=== PATIENT | male | born 1950 | race African-American/Black ===

== ENCOUNTER 2018-05-31 07:04 | Inpatient (IN) ==
[~2018-05-31 07:04] MED LIST: ceFAZolin 1,000 MG in SYRINGE 1 EACH IV ONE
[2018-05-31] MEDS ORDERED: ceFAZolin 1,000 MG VIAL ONE (07:28)
[2018-05-31 07:50] LABS: Basophils % 0.3 % (0.0-0.8); Eosinophils # 0.4 10*3/uL (0.0-0.87); Eosinophils % 3.4 % (0.00-10.9); Hematocrit 40.1 VOL% (42.0-52.0); Hemoglobin 13.1 GM/DL (14.0-18.0); Immature Granulocytes % 0.3 %; Immature Granulocytes Absolute 0.03 #; Lymphocytes # 1.7 10*3/uL (1.4-4.0); Lymphocytes % 16.5 % (21.2-54.2); Mean Corpuscular HGB Conc 32.7 GM/DL (32-36); Mean Corpuscular Hemoglobin 29 PG (27-34); Mean Corpuscular Volume 89.3 FL (87-102); Monocytes # 0.6 10*3/uL (0.11-0.8); Monocytes % 5.7 % (1.7-12.7); Neutrophils # 7.5 10*3/uL (1.4-7.4); Neutrophils % 73.8 % (38.7-73.9); Platelet Count 189 T/CUMM (130-400); Red Blood Count 4.49 MC/CUMM (3.8-5.5); Red Cell Distribution Width 14.1 % (9.3-17.3); White Blood Count 10.2 T/CUMM (4-12)
[2018-05-31] MEDS ORDERED: ALBUTEROL/IPRATROPIUM 3 ML NEB RESP TX ONE (08:06)
[2018-05-31] MEDS ORDERED: FAMOTIDINE 20 MG/2 ML VIAL IV ONE ×2 (08:06→08:17)
[2018-05-31 08:17] LABS: Albumin 2.5 G/DL (3.4-5.0); Bilirubin,Total 0.6 MG/DL (0.2-1.0); Calcium 9.3 MG/DL (8.5-10.1); Osmolality,Calculated 277.7 MOS/KG (273-304); Potassium 4.6 MMOL/L (3.5-5.1); Total Protein 8.1 G/DL (6.4-8.3)
[2018-05-31] MEDS ORDERED: LACTATED RINGERS 1,000 ML IV SCH (08:30)
[2018-05-31] MEDS ORDERED: VANCOMYCIN 500 MG VIAL ONE (09:34)
[2018-05-31] MEDS ORDERED: ONDANSETRON 4 MG/2 ML VIAL IV PRN (11:13)
[2018-05-31] MEDS ORDERED: HYDROmorphone 2 MG/1 ML VIAL IV PRN (11:13)
[2018-05-31] MEDS ORDERED: ALBUTEROL/IPRATROPIUM 3 ML NEB RESP TX PRN (11:13)
[2018-05-31] MEDS ORDERED: PROMETHAZINE 25 MG/1 ML VIAL IM PRN (11:13)
[2018-05-31] MEDS ORDERED: MAGNESIUM HYDROXIDE SUSP 30 ML UDCUP PER TUBE PRN (11:18)
[2018-05-31] MEDS ORDERED: PROPOFOL 200 MG/20 ML VIAL IV ONE (11:27)
[2018-05-31] MEDS ORDERED: fentaNYL 100 MCG/2 ML VIAL ONE (11:28)
[2018-05-31] MEDS ORDERED: SEVOFLURANE 1 UNIT/15 MINUTE INH ONE (11:28)
[2018-05-31] MEDS ORDERED: KETAMINE 500 MG/10 ML VIAL ONE (11:29)
[2018-05-31] MEDS ORDERED: PHENYLEPHRINE 1 MG/10 ML SYRINGE IV ONE (11:29)
[2018-05-31] MEDS ORDERED: INFLUENZA VIRUS VACCINE 0.5 ML SYRINGE IM ONE (14:45)
[2018-05-31] MEDS ORDERED: METOPROLOL TARTRATE 100 MG TABLET PER TUBE SCH (16:00)
[2018-05-31] MEDS ORDERED: DIPYRIDAMOLE 50 MG TABLET PER TUBE SCH (16:00)
[2018-05-31] MEDS ORDERED: BUDESONIDE/FORMOTEROL 80-4.5 INHALER 6.9 GM INH SCH (16:00)
[2018-05-31] MEDS ORDERED: DEXTROSE 50% 25 GM/50 ML VIAL IV PRN (16:07)
[2018-05-31] MEDS ORDERED: GLUCAGON 1 MG VIAL IM PRN (16:07)
[2018-05-31] MEDS: LACTATED RINGERS 1,000 ML IV SCH ×2 (19:00→20:35)
[2018-05-31] MEDS: ALBUTEROL/IPRATROPIUM 3 ML NEB RESP TX SCH (19:17)
[2018-05-31] MEDS: INSULIN LISPRO 100 UNIT/ML SUBCUT SCH ×2 (20:34→22:17)
[2018-05-31] MEDS: cloNIDine 0.1 MG TABLET PER TUBE SCH (22:10)
[2018-05-31] MEDS: MELATONIN 3 MG TABLET PER TUBE SCH (22:10)
[2018-05-31] MEDS: SERTRALINE 100 MG TABLET PEG SCH (22:10)
[2018-05-31] MEDS: NAPROXEN 250 MG TABLET PO SCH (22:11)
[2018-05-31] MEDS: DIPYRIDAMOLE 50 MG TABLET PER TUBE SCH (22:17)
[2018-05-31] MEDS: METOPROLOL TARTRATE 100 MG TABLET PER TUBE SCH (22:17)
[2018-05-31] MEDS: HYDROmorphone 2 MG/1 ML VIAL IV PRN (22:18)
[2018-05-31] MEDS: BUDESONIDE/FORMOTEROL 80-4.5 INHALER 6.9 GM INH SCH (22:28)
[2018-06-01] MEDS: ALBUTEROL/IPRATROPIUM 3 ML NEB RESP TX SCH ×4 (00:13→19:09)
[2018-06-01] MEDS: LACTATED RINGERS 1,000 ML IV SCH ×3 (05:15→17:58)
[2018-06-01 05:19] LABS: Basophils % 0.3 % (0.0-0.8); Eosinophils # 0.1 10*3/uL (0.0-0.87); Hematocrit 31.8 VOL% (42.0-52.0); Hemoglobin 10.2 GM/DL (14.0-18.0); Immature Granulocytes % 0.3 %; Immature Granulocytes Absolute 0.03 #; Lymphocytes # 1.4 10*3/uL (1.4-4.0); Mean Corpuscular HGB Conc 32.1 GM/DL (32-36); Mean Corpuscular Hemoglobin 29 PG (27-34); Mean Corpuscular Volume 89.1 FL (87-102); Mean Platelet Volume 11.2 FL (9.6-12.0); Monocytes # 0.6 10*3/uL (0.11-0.8); Monocytes % 6.7 % (1.7-12.7); Neutrophils # 7.3 10*3/uL (1.4-7.4); Neutrophils % 76.7 % (38.7-73.9); Platelet Count 175 T/CUMM (130-400); Red Blood Count 3.57 MC/CUMM (3.8-5.5); Red Cell Distribution Width 13.8 % (9.3-17.3); White Blood Count 9.5 T/CUMM (4-12)
[2018-06-01 05:33] LABS: Calcium 8.5 MG/DL (8.5-10.1); Osmolality,Calculated 284.4 MOS/KG (273-304); Potassium 3.9 MMOL/L (3.5-5.1)
[2018-06-01 05:35] LABS: Albumin 2.2 G/DL (3.4-5.0); Bilirubin,Total 0.7 MG/DL (0.2-1.0); Calcium 8.7 MG/DL (8.5-10.1); Osmolality,Calculated 285.3 MOS/KG (273-304); Potassium 3.9 MMOL/L (3.5-5.1); Prealbumin 12.1 MG/DL (20-40); Risk Ratio 2.97; Total Protein 6.8 G/DL (6.4-8.3); VLDL CHOLESTEROL 14.4 MG/DL
[2018-06-01] MEDS: FONDAPARINUX 2.5 MG/0.5 ML SYRINGE SUBCUT SCH (06:25)
[2018-06-01] MEDS: NAPROXEN 250 MG TABLET PO SCH ×3 (06:26→21:41)
[2018-06-01] MEDS: INSULIN LISPRO 100 UNIT/ML SUBCUT SCH ×4 (09:35→20:05)
[2018-06-01] MEDS: ASPIRIN 325 MG TABLET PER TUBE SCH (11:06)
[2018-06-01] MEDS: LOSARTAN 25 MG TABLET PEG SCH (11:06)
[2018-06-01] MEDS: METOPROLOL TARTRATE 100 MG TABLET PER TUBE SCH ×2 (11:06→15:27)
[2018-06-01] MEDS: amLODIPine 10 MG TABLET PER TUBE SCH (11:06)
[2018-06-01] MEDS: DIPYRIDAMOLE 50 MG TABLET PER TUBE SCH ×2 (11:06→15:28)
[2018-06-01] MEDS: LORATADINE 10 MG TABLET PER TUBE SCH (11:07)
[2018-06-01] MEDS: ALLOPURINOL 100 MG TABLET PER TUBE SCH (11:07)
[2018-06-01] MEDS: POTASSIUM CHLORIDE 20 MEQ/15 ML UDCUP PER TUBE SCH (11:07)
[2018-06-01] MEDS: MULTIVITAMIN LIQUID (CENTRUM) 60 ML BOTTLE PER TUBE SCH (11:07)
[2018-06-01] MEDS: BUDESONIDE/FORMOTEROL 80-4.5 INHALER 6.9 GM INH SCH ×2 (11:08→15:40)
[2018-06-01] MEDS: POLYETHYLENE GLYCOL POWDER 17 GM PACK PER TUBE SCH (11:08)
[2018-06-01] MEDS: HYDROmorphone 2 MG/1 ML VIAL IV PRN (11:39)
[2018-06-01] MEDS ORDERED: LEVOFLOXACIN INJ 500 MG in PREMIX 1 EACH IV SCH (16:30)
[2018-06-01] MEDS: LEVOFLOXACIN INJ 750 MG in PREMIX 1 EACH IV SCH (17:55)
[2018-06-01] MEDS: PIPERACILLIN/TAZOBACTAM 3,375 MG in SODIUM CHLORIDE 0.9% 100 ML IV SCH (21:39)
[2018-06-01] MEDS: cloNIDine 0.1 MG TABLET PER TUBE SCH (21:40)
[2018-06-01] MEDS: SERTRALINE 100 MG TABLET PEG SCH (21:40)
[2018-06-01] MEDS: MELATONIN 3 MG TABLET PER TUBE SCH (21:41)
[2018-06-02] MEDS: ALBUTEROL/IPRATROPIUM 3 ML NEB RESP TX SCH ×4 (00:29→19:16)
[2018-06-02] MEDS: LACTATED RINGERS 1,000 ML IV SCH (00:46)
[2018-06-02 05:40] LABS: Basophils % 0.2 % (0.0-0.8); Eosinophils # 0.2 10*3/uL (0.0-0.87); Eosinophils % 2.6 % (0.00-10.9); Hemoglobin 9.9 GM/DL (14.0-18.0); Immature Granulocytes % 0.3 %; Immature Granulocytes Absolute 0.03 #; Lymphocytes % 11.1 % (21.2-54.2); Mean Corpuscular HGB Conc 31.9 GM/DL (32-36); Mean Corpuscular Hemoglobin 28 PG (27-34); Mean Corpuscular Volume 88.6 FL (87-102); Monocytes # 0.8 10*3/uL (0.11-0.8); Monocytes % 8.2 % (1.7-12.7); Neutrophils # 7.1 10*3/uL (1.4-7.4); Neutrophils % 77.6 % (38.7-73.9); Platelet Count 170 T/CUMM (130-400); White Blood Count 9.2 T/CUMM (4-12)
[2018-06-02 05:59] LABS: Calcium 8.4 MG/DL (8.5-10.1); Osmolality,Calculated 283.3 MOS/KG (273-304); Potassium 3.8 MMOL/L (3.5-5.1)
[2018-06-02] MEDS: PIPERACILLIN/TAZOBACTAM 3,375 MG in SODIUM CHLORIDE 0.9% 100 ML IV SCH ×3 (06:10→21:04)
[2018-06-02] MEDS: NAPROXEN 250 MG TABLET PO SCH ×3 (06:13→21:03)
[2018-06-02] MEDS: FONDAPARINUX 2.5 MG/0.5 ML SYRINGE SUBCUT SCH (06:14)
[2018-06-02] MEDS: INSULIN LISPRO 100 UNIT/ML SUBCUT SCH ×4 (07:30→22:03)
[2018-06-02] MEDS: ASPIRIN 325 MG TABLET PER TUBE SCH (09:41)
[2018-06-02] MEDS: DIPYRIDAMOLE 50 MG TABLET PER TUBE SCH ×2 (09:41→15:36)
[2018-06-02] MEDS: METOPROLOL TARTRATE 100 MG TABLET PER TUBE SCH ×2 (09:41→15:36)
[2018-06-02] MEDS: LOSARTAN 25 MG TABLET PEG SCH (09:41)
[2018-06-02] MEDS: amLODIPine 10 MG TABLET PER TUBE SCH (09:41)
[2018-06-02] MEDS: LORATADINE 10 MG TABLET PER TUBE SCH (09:41)
[2018-06-02] MEDS: ALLOPURINOL 100 MG TABLET PER TUBE SCH (09:41)
[2018-06-02] MEDS: MULTIVITAMIN LIQUID (CENTRUM) 60 ML BOTTLE PER TUBE SCH (09:42)
[2018-06-02] MEDS: BUDESONIDE/FORMOTEROL 80-4.5 INHALER 6.9 GM INH SCH ×2 (09:42→15:45)
[2018-06-02] MEDS: POLYETHYLENE GLYCOL POWDER 17 GM PACK PER TUBE SCH (09:55)
[2018-06-02] MEDS: LEVOFLOXACIN INJ 750 MG in PREMIX 1 EACH IV SCH (17:07)
[2018-06-02] MEDS: SERTRALINE 100 MG TABLET PEG SCH (21:03)
[2018-06-02] MEDS: cloNIDine 0.1 MG TABLET PER TUBE SCH (21:03)
[2018-06-02] MEDS: MELATONIN 3 MG TABLET PER TUBE SCH (22:03)
[2018-06-03] MEDS: ALBUTEROL/IPRATROPIUM 3 ML NEB RESP TX SCH ×4 (00:15→19:26)
[2018-06-03] MEDS: PIPERACILLIN/TAZOBACTAM 3,375 MG in SODIUM CHLORIDE 0.9% 100 ML IV SCH ×2 (06:05→14:15)
[2018-06-03] MEDS: FONDAPARINUX 2.5 MG/0.5 ML SYRINGE SUBCUT SCH (06:05)
[2018-06-03] MEDS: NAPROXEN 250 MG TABLET PO SCH ×3 (06:05→21:03)
[2018-06-03] MEDS: LOSARTAN 25 MG TABLET PEG SCH (08:03)
[2018-06-03] MEDS: LORATADINE 10 MG TABLET PER TUBE SCH (08:03)
[2018-06-03] MEDS: amLODIPine 10 MG TABLET PER TUBE SCH (08:03)
[2018-06-03] MEDS: METOPROLOL TARTRATE 100 MG TABLET PER TUBE SCH ×2 (08:03→15:09)
[2018-06-03] MEDS: ASPIRIN 325 MG TABLET PER TUBE SCH (08:03)
[2018-06-03] MEDS: ALLOPURINOL 100 MG TABLET PER TUBE SCH (08:03)
[2018-06-03] MEDS: DIPYRIDAMOLE 50 MG TABLET PER TUBE SCH ×2 (08:03→15:09)
[2018-06-03] MEDS: POTASSIUM CHLORIDE 20 MEQ/15 ML UDCUP PER TUBE SCH (08:03)
[2018-06-03] MEDS: INSULIN LISPRO 100 UNIT/ML SUBCUT SCH ×4 (08:04→20:00)
[2018-06-03] MEDS: BUDESONIDE/FORMOTEROL 80-4.5 INHALER 6.9 GM INH SCH ×2 (08:06→15:09)
[2018-06-03] MEDS: MULTIVITAMIN LIQUID (CENTRUM) 60 ML BOTTLE PER TUBE SCH (08:09)
[2018-06-03] MEDS: POLYETHYLENE GLYCOL POWDER 17 GM PACK PER TUBE SCH (09:19)
[2018-06-03] MEDS: LACTOBACILLUS ACIDOPHILUS/BULGARICUS CAPLET PO SCH (10:04)
[2018-06-03] MEDS: metroNIDAZOLE INJ 500 MG in PREMIX 1 EACH IV SCH ×2 (14:34→21:35)
[2018-06-03] MEDS: CHOLESTYRAMINE 4 GM PACK PO SCH (17:10)
[2018-06-03] MEDS: VANCOMYCIN 50 MG/ML 60 ML/BOTTLE PO SCH (17:10)
[2018-06-03] MEDS: SERTRALINE 100 MG TABLET PEG SCH (21:03)
[2018-06-03] MEDS: MELATONIN 3 MG TABLET PER TUBE SCH (21:04)
[2018-06-03] MEDS: cloNIDine 0.1 MG TABLET PER TUBE SCH (21:04)
[2018-06-04] MEDS: VANCOMYCIN 50 MG/ML 60 ML/BOTTLE PO SCH ×4 (00:11→18:27)
[2018-06-04] MEDS: ALBUTEROL/IPRATROPIUM 3 ML NEB RESP TX SCH ×4 (01:09→18:30)
[2018-06-04 04:31] LABS: Basophils # 0.1 10*3/uL (0.0-0.2); Basophils % 0.7 % (0.0-0.8); Eosinophils # 0.5 10*3/uL (0.0-0.87); Eosinophils % 7.5 % (0.00-10.9); Hematocrit 30.5 VOL% (42.0-52.0); Hemoglobin 9.9 GM/DL (14.0-18.0); Immature Granulocytes % 0.3 %; Immature Granulocytes Absolute 0.02 #; Lymphocytes # 1.5 10*3/uL (1.4-4.0); Lymphocytes % 21.6 % (21.2-54.2); Mean Corpuscular HGB Conc 32.5 GM/DL (32-36); Mean Corpuscular Hemoglobin 29 PG (27-34); Mean Corpuscular Volume 89.7 FL (87-102); Monocytes # 0.5 10*3/uL (0.11-0.8); Monocytes % 7.6 % (1.7-12.7); Neutrophils # 4.3 10*3/uL (1.4-7.4); Neutrophils % 62.3 % (38.7-73.9); Platelet Count 169 T/CUMM (130-400); White Blood Count 6.9 T/CUMM (4-12)
[2018-06-04 04:47] LABS: Calcium 8.6 MG/DL (8.5-10.1); Osmolality,Calculated 283.3 MOS/KG (273-304); Potassium 3.8 MMOL/L (3.5-5.1)
[2018-06-04] MEDS: FONDAPARINUX 2.5 MG/0.5 ML SYRINGE SUBCUT SCH (05:49)
[2018-06-04] MEDS: NAPROXEN 250 MG TABLET PO SCH (05:49)
[2018-06-04] MEDS: metroNIDAZOLE INJ 500 MG in PREMIX 1 EACH IV SCH ×3 (05:50→23:30)
[2018-06-04] MEDS: INSULIN LISPRO 100 UNIT/ML SUBCUT SCH ×4 (08:52→20:32)
[2018-06-04] MEDS ORDERED: FUROSEMIDE 40 MG/4 ML VIAL IV ONE (09:55)
[2018-06-04] MEDS: LACTOBACILLUS ACIDOPHILUS/BULGARICUS CAPLET PO SCH (09:56)
[2018-06-04] MEDS: BUDESONIDE/FORMOTEROL 80-4.5 INHALER 6.9 GM INH SCH ×2 (09:56→16:16)
[2018-06-04] MEDS: ASPIRIN 325 MG TABLET PER TUBE SCH (09:56)
[2018-06-04] MEDS: METOPROLOL TARTRATE 100 MG TABLET PER TUBE SCH ×2 (09:56→16:16)
[2018-06-04] MEDS: LORATADINE 10 MG TABLET PER TUBE SCH (09:56)
[2018-06-04] MEDS: MULTIVITAMIN LIQUID (CENTRUM) 60 ML BOTTLE PER TUBE SCH (09:56)
[2018-06-04] MEDS: DIPYRIDAMOLE 50 MG TABLET PER TUBE SCH ×2 (09:56→16:16)
[2018-06-04] MEDS: ALLOPURINOL 100 MG TABLET PER TUBE SCH (09:57)
[2018-06-04] MEDS: LOSARTAN 25 MG TABLET PEG SCH (09:57)
[2018-06-04] MEDS: amLODIPine 10 MG TABLET PER TUBE SCH (09:57)
[2018-06-04] MEDS: CHOLESTYRAMINE 4 GM PACK PO SCH (09:57)
[2018-06-04] MEDS: HYDROmorphone 2 MG/1 ML VIAL IV PRN (11:01)
[2018-06-04] MEDS: SERTRALINE 100 MG TABLET PEG SCH (21:06)
[2018-06-04] MEDS: MELATONIN 3 MG TABLET PER TUBE SCH (21:06)
[2018-06-04] MEDS: cloNIDine 0.1 MG TABLET PER TUBE SCH (21:06)
[2018-06-05] MEDS: VANCOMYCIN 50 MG/ML 60 ML/BOTTLE PO SCH ×4 (01:10→17:47)
[2018-06-05 04:40] LABS: Basophils % 0.6 % (0.0-0.8); Eosinophils # 0.5 10*3/uL (0.0-0.87); Eosinophils % 9.6 % (0.00-10.9); Immature Granulocytes % 0.4 %; Immature Granulocytes Absolute 0.02 #; Lymphocytes # 1.2 10*3/uL (1.4-4.0); Mean Corpuscular HGB Conc 32.4 GM/DL (32-36); Mean Corpuscular Hemoglobin 28 PG (27-34); Mean Corpuscular Volume 87.9 FL (87-102); Mean Platelet Volume 10.7 FL (9.6-12.0); Monocytes # 0.3 10*3/uL (0.11-0.8); Monocytes % 6.4 % (1.7-12.7); Neutrophils # 3.2 10*3/uL (1.4-7.4); Platelet Count 187 T/CUMM (130-400); Red Blood Count 3.87 MC/CUMM (3.8-5.5); Red Cell Distribution Width 13.9 % (9.3-17.3); White Blood Count 5.3 T/CUMM (4-12)
[2018-06-05 05:16] LABS: Albumin 2.2 G/DL (3.4-5.0); Bilirubin,Total 0.5 MG/DL (0.2-1.0); Calcium 8.8 MG/DL (8.5-10.1); Osmolality,Calculated 282.4 MOS/KG (273-304); Potassium 3.5 MMOL/L (3.5-5.1); Total Protein 7.3 G/DL (6.4-8.3)
[2018-06-05] MEDS: FONDAPARINUX 2.5 MG/0.5 ML SYRINGE SUBCUT SCH (06:06)
[2018-06-05] MEDS: metroNIDAZOLE INJ 500 MG in PREMIX 1 EACH IV SCH ×3 (06:15→21:30)
[2018-06-05] MEDS: ALBUTEROL/IPRATROPIUM 3 ML NEB RESP TX SCH ×4 (07:32→20:05)
[2018-06-05] MEDS: INSULIN LISPRO 100 UNIT/ML SUBCUT SCH ×4 (07:40→21:28)
[2018-06-05] MEDS ORDERED: FUROSEMIDE 40 MG/4 ML VIAL IV ONE ×2 (08:00→16:19)
[2018-06-05] MEDS: DIPYRIDAMOLE 50 MG TABLET PER TUBE SCH ×2 (08:58→16:55)
[2018-06-05] MEDS: METOPROLOL TARTRATE 100 MG TABLET PER TUBE SCH ×2 (08:58→16:55)
[2018-06-05] MEDS: ASPIRIN 325 MG TABLET PER TUBE SCH (09:40)
[2018-06-05] MEDS: ALLOPURINOL 100 MG TABLET PER TUBE SCH (09:40)
[2018-06-05] MEDS: LOSARTAN 25 MG TABLET PEG SCH (09:40)
[2018-06-05] MEDS: amLODIPine 10 MG TABLET PER TUBE SCH (09:40)
[2018-06-05] MEDS: LACTOBACILLUS ACIDOPHILUS/BULGARICUS CAPLET PO SCH (09:41)
[2018-06-05] MEDS: LORATADINE 10 MG TABLET PER TUBE SCH (09:42)
[2018-06-05] MEDS: CHOLESTYRAMINE 4 GM PACK PO SCH (09:45)
[2018-06-05] MEDS: BUDESONIDE/FORMOTEROL 80-4.5 INHALER 6.9 GM INH SCH ×2 (09:45→16:57)
[2018-06-05] MEDS: MULTIVITAMIN LIQUID (CENTRUM) 60 ML BOTTLE PER TUBE SCH (09:46)
[2018-06-05] MEDS: VANCOMYCIN INJ 1,250 MG in SODIUM CHLORIDE 0.9% 250 ML IV SCH (12:12)
[2018-06-05] MEDS ORDERED: POTASSIUM CHLORIDE RIDER 10 MEQ in PREMIX 1 EACH IV PRN (16:20)
[2018-06-05] MEDS ORDERED: POTASSIUM CHLORIDE 20 MEQ TABLET PO PRN (16:20)
[2018-06-05] MEDS ORDERED: POTASSIUM CHLORIDE 20 MEQ/15 ML UDCUP PER TUBE PRN (16:20)
[2018-06-05] MEDS ORDERED: POTASSIUM CHLORIDE 20 MEQ/15 ML UDCUP PER TUBE ONE (18:00)
[2018-06-05] MEDS: cloNIDine 0.1 MG TABLET PER TUBE SCH (21:29)
[2018-06-05] MEDS: MELATONIN 3 MG TABLET PER TUBE SCH (21:29)
[2018-06-05] MEDS: SERTRALINE 100 MG TABLET PEG SCH (21:30)
[2018-06-06] MEDS: VANCOMYCIN 50 MG/ML 60 ML/BOTTLE PO SCH ×4 (00:23→17:02)
[2018-06-06] MEDS: VANCOMYCIN INJ 1,250 MG in SODIUM CHLORIDE 0.9% 250 ML IV SCH ×2 (00:23→11:20)
[2018-06-06] MEDS: ALBUTEROL/IPRATROPIUM 3 ML NEB RESP TX SCH ×4 (00:35→19:05)
[2018-06-06 03:56] LABS: Basophils % 0.7 % (0.0-0.8); Eosinophils # 0.5 10*3/uL (0.0-0.87); Eosinophils % 8.5 % (0.00-10.9); Hematocrit 35.2 VOL% (42.0-52.0); Hemoglobin 11.3 GM/DL (14.0-18.0); Immature Granulocytes % 0.3 %; Immature Granulocytes Absolute 0.02 #; Lymphocytes # 1.6 10*3/uL (1.4-4.0); Lymphocytes % 27.2 % (21.2-54.2); Mean Corpuscular HGB Conc 32.1 GM/DL (32-36); Mean Corpuscular Hemoglobin 28 PG (27-34); Mean Corpuscular Volume 88.2 FL (87-102); Mean Platelet Volume 10.6 FL (9.6-12.0); Monocytes # 0.4 10*3/uL (0.11-0.8); Monocytes % 7.1 % (1.7-12.7); Neutrophils # 3.4 10*3/uL (1.4-7.4); Neutrophils % 56.2 % (38.7-73.9); Platelet Count 205 T/CUMM (130-400); Red Blood Count 3.99 MC/CUMM (3.8-5.5); Red Cell Distribution Width 13.8 % (9.3-17.3)
[2018-06-06 04:15] LABS: Calcium 8.4 MG/DL (8.5-10.1); Osmolality,Calculated 286.3 MOS/KG (273-304); Potassium 3.8 MMOL/L (3.5-5.1)
[2018-06-06] MEDS: FONDAPARINUX 2.5 MG/0.5 ML SYRINGE SUBCUT SCH (05:45)
[2018-06-06] MEDS: metroNIDAZOLE INJ 500 MG in PREMIX 1 EACH IV SCH ×2 (05:54→13:43)
[2018-06-06] MEDS: POTASSIUM CHLORIDE 20 MEQ/15 ML UDCUP PER TUBE SCH (08:26)
[2018-06-06] MEDS: amLODIPine 10 MG TABLET PER TUBE SCH (08:26)
[2018-06-06] MEDS: DIPYRIDAMOLE 50 MG TABLET PER TUBE SCH ×2 (08:27→16:01)
[2018-06-06] MEDS: CHOLESTYRAMINE 4 GM PACK PO SCH (08:27)
[2018-06-06] MEDS: LACTOBACILLUS ACIDOPHILUS/BULGARICUS CAPLET PO SCH (08:27)
[2018-06-06] MEDS: LORATADINE 10 MG TABLET PER TUBE SCH (08:27)
[2018-06-06] MEDS: ALLOPURINOL 100 MG TABLET PER TUBE SCH (08:27)
[2018-06-06] MEDS: ASPIRIN 325 MG TABLET PER TUBE SCH (08:28)
[2018-06-06] MEDS: INSULIN LISPRO 100 UNIT/ML SUBCUT SCH ×4 (08:28→20:52)
[2018-06-06] MEDS: LOSARTAN 25 MG TABLET PEG SCH ×2 (08:28→10:04)
[2018-06-06] MEDS: METOPROLOL TARTRATE 100 MG TABLET PER TUBE SCH ×3 (08:28→16:02)
[2018-06-06] MEDS: MULTIVITAMIN LIQUID (CENTRUM) 60 ML BOTTLE PER TUBE SCH (08:31)
[2018-06-06] MEDS: BUDESONIDE/FORMOTEROL 80-4.5 INHALER 6.9 GM INH SCH ×2 (08:33→16:01)
[2018-06-06] MEDS: MELATONIN 3 MG TABLET PER TUBE SCH (20:51)
[2018-06-06] MEDS: SERTRALINE 100 MG TABLET PEG SCH (20:52)
[2018-06-06] MEDS: cloNIDine 0.1 MG TABLET PER TUBE SCH (20:52)
[2018-06-07] MEDS: ALBUTEROL/IPRATROPIUM 3 ML NEB RESP TX SCH ×4 (00:31→19:00)
[2018-06-07] MEDS: metroNIDAZOLE INJ 500 MG in PREMIX 1 EACH IV SCH ×2 (00:40→08:10)
[2018-06-07] MEDS: VANCOMYCIN 50 MG/ML 60 ML/BOTTLE PO SCH ×5 (00:43→23:47)
[2018-06-07] MEDS: VANCOMYCIN INJ 1,250 MG in SODIUM CHLORIDE 0.9% 250 ML IV SCH (01:46)
[2018-06-07 04:58] LABS: Basophils # 0.1 10*3/uL (0.0-0.2); Basophils % 0.8 % (0.0-0.8); Eosinophils # 0.5 10*3/uL (0.0-0.87); Eosinophils % 7.7 % (0.00-10.9); Hematocrit 35.4 VOL% (42.0-52.0); Hemoglobin 11.3 GM/DL (14.0-18.0); Immature Granulocytes % 0.3 %; Immature Granulocytes Absolute 0.02 #; Lymphocytes # 1.4 10*3/uL (1.4-4.0); Lymphocytes % 21.5 % (21.2-54.2); Mean Corpuscular HGB Conc 31.9 GM/DL (32-36); Mean Corpuscular Hemoglobin 29 PG (27-34); Mean Corpuscular Volume 89.2 FL (87-102); Mean Platelet Volume 10.8 FL (9.6-12.0); Monocytes # 0.5 10*3/uL (0.11-0.8); Monocytes % 7.7 % (1.7-12.7); Neutrophils # 4.1 10*3/uL (1.4-7.4); Platelet Count 197 T/CUMM (130-400); Red Blood Count 3.97 MC/CUMM (3.8-5.5); Red Cell Distribution Width 13.9 % (9.3-17.3); White Blood Count 6.7 T/CUMM (4-12)
[2018-06-07 05:12] LABS: Calcium 8.5 MG/DL (8.5-10.1); Osmolality,Calculated 283.4 MOS/KG (273-304); Potassium 3.9 MMOL/L (3.5-5.1)
[2018-06-07] MEDS: FONDAPARINUX 2.5 MG/0.5 ML SYRINGE SUBCUT SCH (05:32)
[2018-06-07] MEDS: INSULIN LISPRO 100 UNIT/ML SUBCUT SCH ×4 (07:23→20:25)
[2018-06-07] MEDS: BUDESONIDE/FORMOTEROL 80-4.5 INHALER 6.9 GM INH SCH ×2 (08:09→15:21)
[2018-06-07] MEDS: LACTOBACILLUS ACIDOPHILUS/BULGARICUS CAPLET PO SCH (08:10)
[2018-06-07] MEDS: MULTIVITAMIN LIQUID (CENTRUM) 60 ML BOTTLE PER TUBE SCH (08:10)
[2018-06-07] MEDS: ASPIRIN 325 MG TABLET PER TUBE SCH (08:11)
[2018-06-07] MEDS: ALLOPURINOL 100 MG TABLET PER TUBE SCH (08:11)
[2018-06-07] MEDS: LORATADINE 10 MG TABLET PER TUBE SCH (08:11)
[2018-06-07] MEDS: DIPYRIDAMOLE 50 MG TABLET PER TUBE SCH ×2 (08:11→15:21)
[2018-06-07] MEDS: METOPROLOL TARTRATE 100 MG TABLET PER TUBE SCH ×2 (08:12→15:21)
[2018-06-07] MEDS: CHOLESTYRAMINE 4 GM PACK PO SCH ×2 (08:12→20:25)
[2018-06-07] MEDS: LOSARTAN 25 MG TABLET PEG SCH (08:12)
[2018-06-07] MEDS: amLODIPine 10 MG TABLET PER TUBE SCH (08:12)
[2018-06-07] MEDS: SERTRALINE 100 MG TABLET PEG SCH (20:24)
[2018-06-07] MEDS: MELATONIN 3 MG TABLET PER TUBE SCH (20:24)
[2018-06-07] MEDS: cloNIDine 0.1 MG TABLET PER TUBE SCH (20:26)
[2018-06-08] MEDS: ALBUTEROL/IPRATROPIUM 3 ML NEB RESP TX SCH ×3 (00:50→13:16)
[2018-06-08] MEDS: FONDAPARINUX 2.5 MG/0.5 ML SYRINGE SUBCUT SCH (05:52)
[2018-06-08] MEDS: VANCOMYCIN 50 MG/ML 60 ML/BOTTLE PO SCH ×2 (05:52→11:33)
[2018-06-08] MEDS: INSULIN LISPRO 100 UNIT/ML SUBCUT SCH ×2 (07:30→12:39)
[2018-06-08] MEDS: amLODIPine 10 MG TABLET PER TUBE SCH (10:50)
[2018-06-08] MEDS: METOPROLOL TARTRATE 100 MG TABLET PER TUBE SCH (10:50)
[2018-06-08] MEDS: ASPIRIN 325 MG TABLET PER TUBE SCH (10:50)
[2018-06-08] MEDS: CHOLESTYRAMINE 4 GM PACK PO SCH (10:50)
[2018-06-08] MEDS: LACTOBACILLUS ACIDOPHILUS/BULGARICUS CAPLET PO SCH (10:50)
[2018-06-08] MEDS: LORATADINE 10 MG TABLET PER TUBE SCH (10:50)
[2018-06-08] MEDS: LOSARTAN 25 MG TABLET PEG SCH (10:50)
[2018-06-08] MEDS: POTASSIUM CHLORIDE 20 MEQ/15 ML UDCUP PER TUBE SCH (10:50)
[2018-06-08] MEDS: ALLOPURINOL 100 MG TABLET PER TUBE SCH (10:50)
[2018-06-08] MEDS: BUDESONIDE/FORMOTEROL 80-4.5 INHALER 6.9 GM INH SCH (10:51)
[2018-06-08] MEDS: MULTIVITAMIN LIQUID (CENTRUM) 60 ML BOTTLE PER TUBE SCH (10:52)
[2018-06-08] MEDS: DIPYRIDAMOLE 50 MG TABLET PER TUBE SCH (11:25)
[2018-06-08 16:25] VITALS: BP 134/79
== END 2018-06-08 15:40 | DRG 239 ==
LOC: N.SDSINP 07:04 → SUATTDRO 07:04 → N.3E 14:20
PROVIDERS: ADMIT Surgery; ATTEND Hospitalist

== ENCOUNTER 2018-08-23 15:41 | Inpatient (IN) ==
[2018-08-23] MEDS ORDERED: ALBUTEROL/IPRATROPIUM 3 ML NEB RESP TX PRN (16:46)
[2018-08-23] MEDS ORDERED: MAGNESIUM HYDROXIDE SUSP 30 ML UDCUP PER TUBE PRN (16:46)
[2018-08-23 19:12] LABS: Basophils % 0.3 % (0.0-0.8); Eosinophils # 0.2 10*3/uL (0.0-0.87); Hematocrit 40.9 VOL% (42.0-52.0); Hemoglobin 13.2 GM/DL (14.0-18.0); Immature Granulocytes % 0.3 %; Immature Granulocytes Absolute 0.03 #; Lymphocytes # 2.4 10*3/uL (1.4-4.0); Lymphocytes % 21.1 % (21.2-54.2); Mean Corpuscular HGB Conc 32.3 GM/DL (32-36); Mean Corpuscular Hemoglobin 28 PG (27-34); Mean Corpuscular Volume 86.3 FL (87-102); Mean Platelet Volume 10.4 FL (9.6-12.0); Monocytes # 0.6 10*3/uL (0.11-0.8); Monocytes % 4.9 % (1.7-12.7); Neutrophils # 8.2 10*3/uL (1.4-7.4); Neutrophils % 71.4 % (38.7-73.9); Platelet Count 187 T/CUMM (130-400); Red Blood Count 4.74 MC/CUMM (3.8-5.5); Red Cell Distribution Width 14.7 % (9.3-17.3); White Blood Count 11.4 T/CUMM (4-12)
[2018-08-23 19:22] LABS: INR 0.9
[2018-08-23 19:34] LABS: Alanine Aminotransferase 45 U/L (16-61); Albumin 2.7 G/DL (3.4-5.0); Alkaline Phosphatase 151 U/L (45-117); Aspartate Amino Transferase 26 U/L (0-37); Bilirubin,Total < 0.39 MG/DL (0.2-1.0); Blood Urea Nitrogen 17 MG/DL (7-18); Calcium 9.3 MG/DL (8.5-10.1); Glucose 105 MG/DL (74-106); Osmolality,Calculated 276.7 MOS/KG (273-304); Potassium 4.1 MMOL/L (3.5-5.1); Sodium 138 MMOL/L (136-145); Total Protein 8.8 G/DL (6.4-8.3)
[2018-08-23] MEDS: ALBUTEROL/IPRATROPIUM 3 ML NEB RESP TX SCH (19:36)
[2018-08-23] MEDS ORDERED: CHOLESTYRAMINE 4 GM PACK PO SCH (21:00)
[2018-08-23] MEDS: LACTATED RINGERS 1,000 ML IV SCH (21:59)
[2018-08-23] MEDS: ceFAZolin 1,000 MG in SYRINGE 1 EACH IV SCH (22:01)
[2018-08-23] MEDS: SERTRALINE 100 MG TABLET PEG SCH (23:04)
[2018-08-23] MEDS: MELATONIN 3 MG TABLET PER TUBE SCH (23:04)
[2018-08-23] MEDS: cloNIDine 0.1 MG TABLET PER TUBE SCH (23:04)
[2018-08-24] MEDS: ALBUTEROL/IPRATROPIUM 3 ML NEB RESP TX SCH ×4 (01:29→19:40)
[2018-08-24] MEDS: ceFAZolin 1,000 MG in SYRINGE 1 EACH IV SCH ×5 (04:52→21:30)
[2018-08-24] MEDS ORDERED: NON-FORMULARY MEDICATION (Loratadine [Claritin] 10 MG) PER TUBE SCH (09:00)
[2018-08-24] MEDS: LORATADINE 10 MG TABLET PER TUBE SCH (09:50)
[2018-08-24] MEDS: METOPROLOL TARTRATE 100 MG TABLET PER TUBE SCH ×2 (09:51→15:34)
[2018-08-24] MEDS: DIPYRIDAMOLE 50 MG TABLET PER TUBE SCH ×2 (09:51→15:34)
[2018-08-24] MEDS: amLODIPine 10 MG TABLET PER TUBE SCH (09:51)
[2018-08-24] MEDS: BUDESONIDE/FORMOTEROL 80-4.5 INHALER 6.9 GM INH SCH ×2 (09:51→16:38)
[2018-08-24] MEDS: LACTOBACILLUS ACIDOPHILUS/BULGARICUS CAPLET PO SCH (09:52)
[2018-08-24] MEDS: CHOLESTYRAMINE 4 GM PACK PO SCH (09:52)
[2018-08-24] MEDS: LOSARTAN 25 MG TABLET PEG SCH (09:52)
[2018-08-24] MEDS: ALLOPURINOL 100 MG TABLET PER TUBE SCH (09:52)
[2018-08-24] MEDS: POLYETHYLENE GLYCOL POWDER 17 GM PACK PER TUBE SCH (09:52)
[2018-08-24] MEDS ORDERED: ceFAZolin 1,000 MG VIAL ONE (10:06)
[2018-08-24] MEDS ORDERED: PROPOFOL 200 MG/20 ML VIAL IV ONE (12:50)
[2018-08-24] MEDS ORDERED: ONDANSETRON 4 MG/2 ML VIAL ONE (12:51)
[2018-08-24] MEDS ORDERED: MIDAZOLAM 2 MG/2 ML VIAL ONE (12:51)
[2018-08-24] MEDS ORDERED: fentaNYL 100 MCG/2 ML VIAL ONE (12:51)
[2018-08-24] MEDS ORDERED: SEVOFLURANE 1 UNIT/15 MINUTE INH ONE (12:51)
[2018-08-24] MEDS ORDERED: PHENYLEPHRINE 10 MG/1 ML VIAL IV ONE (12:52)
[2018-08-24] MEDS ORDERED: SODIUM CHLORIDE 0.9% 250 ML IV ONE (12:52)
[2018-08-24] MEDS ORDERED: KETOROLAC 30 MG/1 ML VIAL ONE (12:54)
[2018-08-24] MEDS: KETOROLAC 15 MG/1 ML VIAL IV SCH ×2 (12:54→18:49)
[2018-08-24] MEDS ORDERED: KETAMINE 500 MG/10 ML VIAL ONE (12:55)
[2018-08-24] MEDS: HYDROmorphone 2 MG/1 ML VIAL IV PRN (15:33)
[2018-08-24] MEDS: POTASSIUM CHLORIDE 20 MEQ/15 ML UDCUP PER TUBE SCH (17:54)
[2018-08-24] MEDS: cloNIDine 0.1 MG TABLET PER TUBE SCH (21:30)
[2018-08-24] MEDS: MELATONIN 3 MG TABLET PER TUBE SCH (21:30)
[2018-08-24] MEDS: SERTRALINE 100 MG TABLET PEG SCH (21:30)
[2018-08-25] MEDS: LACTATED RINGERS 1,000 ML IV SCH (00:44)
[2018-08-25] MEDS: KETOROLAC 15 MG/1 ML VIAL IV SCH ×4 (00:45→18:15)
[2018-08-25] MEDS: ALBUTEROL/IPRATROPIUM 3 ML NEB RESP TX SCH ×4 (00:48→19:25)
[2018-08-25] MEDS: ceFAZolin 1,000 MG in SYRINGE 1 EACH IV SCH ×2 (04:25→10:30)
[2018-08-25 05:30] LABS: Prealbumin 14.9 MG/DL (20-40)
[2018-08-25] MEDS: BUDESONIDE/FORMOTEROL 80-4.5 INHALER 6.9 GM INH SCH ×2 (10:14→17:20)
[2018-08-25] MEDS: ALLOPURINOL 100 MG TABLET PER TUBE SCH (10:31)
[2018-08-25] MEDS: LACTOBACILLUS ACIDOPHILUS/BULGARICUS CAPLET PO SCH (10:31)
[2018-08-25] MEDS: DIPYRIDAMOLE 50 MG TABLET PER TUBE SCH ×2 (10:32→17:48)
[2018-08-25] MEDS: amLODIPine 10 MG TABLET PER TUBE SCH (10:33)
[2018-08-25] MEDS: METOPROLOL TARTRATE 100 MG TABLET PER TUBE SCH ×2 (10:33→17:48)
[2018-08-25] MEDS: LORATADINE 10 MG TABLET PER TUBE SCH (10:33)
[2018-08-25] MEDS: LOSARTAN 25 MG TABLET PEG SCH (10:33)
[2018-08-25] MEDS: CHOLESTYRAMINE 4 GM PACK PO SCH (10:34)
[2018-08-25] MEDS: POLYETHYLENE GLYCOL POWDER 17 GM PACK PER TUBE SCH (10:35)
[2018-08-25] MEDS: cloNIDine 0.1 MG TABLET PER TUBE SCH (20:17)
[2018-08-25] MEDS: MELATONIN 3 MG TABLET PER TUBE SCH (20:17)
[2018-08-25] MEDS: SERTRALINE 100 MG TABLET PEG SCH (20:17)
[2018-08-26] MEDS: KETOROLAC 15 MG/1 ML VIAL IV SCH ×5 (00:20→23:34)
[2018-08-26] MEDS: ALBUTEROL/IPRATROPIUM 3 ML NEB RESP TX SCH ×4 (00:34→19:43)
[2018-08-26 05:37] LABS: Basophils % 0.2 % (0.0-0.8); Eosinophils # 0.1 10*3/uL (0.0-0.87); Eosinophils % 0.9 % (0.00-10.9); Hematocrit 35.9 VOL% (42.0-52.0); Hemoglobin 11.3 GM/DL (14.0-18.0); Immature Granulocytes % 0.2 %; Immature Granulocytes Absolute 0.03 #; Lymphocytes # 1.5 10*3/uL (1.4-4.0); Lymphocytes % 12.1 % (21.2-54.2); Mean Corpuscular HGB Conc 31.5 GM/DL (32-36); Mean Corpuscular Hemoglobin 28 PG (27-34); Mean Platelet Volume 10.3 FL (9.6-12.0); Monocytes # 0.6 10*3/uL (0.11-0.8); Monocytes % 4.9 % (1.7-12.7); Neutrophils # 9.8 10*3/uL (1.4-7.4); Neutrophils % 81.7 % (38.7-73.9); Platelet Count 143 T/CUMM (130-400); Red Blood Count 4.08 MC/CUMM (3.8-5.5); Red Cell Distribution Width 14.7 % (9.3-17.3); White Blood Count 12.1 T/CUMM (4-12)
[2018-08-26 05:57] LABS: Calcium 8.6 MG/DL (8.5-10.1); Potassium 3.4 MMOL/L (3.5-5.1)
[2018-08-26] MEDS: METOPROLOL TARTRATE 100 MG TABLET PER TUBE SCH ×2 (09:08→16:55)
[2018-08-26] MEDS: LORATADINE 10 MG TABLET PER TUBE SCH (09:08)
[2018-08-26] MEDS: amLODIPine 10 MG TABLET PER TUBE SCH (09:08)
[2018-08-26] MEDS: LACTOBACILLUS ACIDOPHILUS/BULGARICUS CAPLET PO SCH (09:09)
[2018-08-26] MEDS: DIPYRIDAMOLE 50 MG TABLET PER TUBE SCH ×2 (09:09→16:54)
[2018-08-26] MEDS: LOSARTAN 25 MG TABLET PEG SCH (09:10)
[2018-08-26] MEDS: POLYETHYLENE GLYCOL POWDER 17 GM PACK PER TUBE SCH (09:12)
[2018-08-26] MEDS: CHOLESTYRAMINE 4 GM PACK PO SCH (09:12)
[2018-08-26] MEDS: ALLOPURINOL 100 MG TABLET PER TUBE SCH (09:12)
[2018-08-26] MEDS: BUDESONIDE/FORMOTEROL 80-4.5 INHALER 6.9 GM INH SCH ×2 (10:14→16:55)
[2018-08-26] MEDS: POTASSIUM CHLORIDE 20 MEQ/15 ML UDCUP PER TUBE SCH (16:55)
[2018-08-26] MEDS: MELATONIN 3 MG TABLET PER TUBE SCH (23:33)
[2018-08-26] MEDS: SERTRALINE 100 MG TABLET PEG SCH (23:34)
[2018-08-26] MEDS: cloNIDine 0.1 MG TABLET PER TUBE SCH (23:34)
[2018-08-27] MEDS: ALBUTEROL/IPRATROPIUM 3 ML NEB RESP TX SCH ×4 (00:12→19:17)
[2018-08-27 05:16] LABS: Basophils % 0.4 % (0.0-0.8); Eosinophils # 0.2 10*3/uL (0.0-0.87); Hematocrit 34.3 VOL% (42.0-52.0); Hemoglobin 10.6 GM/DL (14.0-18.0); Immature Granulocytes % 0.3 %; Immature Granulocytes Absolute 0.03 #; Lymphocytes # 1.4 10*3/uL (1.4-4.0); Lymphocytes % 12.8 % (21.2-54.2); Mean Corpuscular HGB Conc 30.9 GM/DL (32-36); Mean Corpuscular Hemoglobin 28 PG (27-34); Mean Corpuscular Volume 89.6 FL (87-102); Mean Platelet Volume 10.7 FL (9.6-12.0); Monocytes # 0.6 10*3/uL (0.11-0.8); Monocytes % 5.6 % (1.7-12.7); Neutrophils # 8.6 10*3/uL (1.4-7.4); Neutrophils % 78.9 % (38.7-73.9); Platelet Count 152 T/CUMM (130-400); Red Blood Count 3.83 MC/CUMM (3.8-5.5); Red Cell Distribution Width 14.9 % (9.3-17.3); White Blood Count 10.9 T/CUMM (4-12)
[2018-08-27 05:38] LABS: Calcium 8.9 MG/DL (8.5-10.1); Osmolality,Calculated 296.4 MOS/KG (273-304); Potassium 3.5 MMOL/L (3.5-5.1)
[2018-08-27] MEDS: KETOROLAC 15 MG/1 ML VIAL IV SCH (06:16)
[2018-08-27] MEDS: ALLOPURINOL 100 MG TABLET PER TUBE SCH (09:15)
[2018-08-27] MEDS: amLODIPine 10 MG TABLET PER TUBE SCH (09:15)
[2018-08-27] MEDS: LACTOBACILLUS ACIDOPHILUS/BULGARICUS CAPLET PO SCH (09:15)
[2018-08-27] MEDS: LOSARTAN 25 MG TABLET PEG SCH (09:15)
[2018-08-27] MEDS: METOPROLOL TARTRATE 100 MG TABLET PER TUBE SCH ×2 (09:16→16:15)
[2018-08-27] MEDS: BUDESONIDE/FORMOTEROL 80-4.5 INHALER 6.9 GM INH SCH ×2 (09:17→16:17)
[2018-08-27] MEDS: POLYETHYLENE GLYCOL POWDER 17 GM PACK PER TUBE SCH (09:17)
[2018-08-27] MEDS: CHOLESTYRAMINE 4 GM PACK PO SCH (09:17)
[2018-08-27] MEDS: DIPYRIDAMOLE 50 MG TABLET PER TUBE SCH ×2 (09:20→16:15)
[2018-08-27] MEDS: LORATADINE 10 MG TABLET PER TUBE SCH (09:20)
[2018-08-27] MEDS: HYDROmorphone 2 MG/1 ML VIAL IV PRN (15:41)
[2018-08-27] MEDS: SERTRALINE 100 MG TABLET PEG SCH (21:57)
[2018-08-27] MEDS: cloNIDine 0.1 MG TABLET PER TUBE SCH (21:57)
[2018-08-27] MEDS: MELATONIN 3 MG TABLET PER TUBE SCH (21:57)
[2018-08-28] MEDS: ALBUTEROL/IPRATROPIUM 3 ML NEB RESP TX SCH ×4 (00:30→19:38)
[2018-08-28] MEDS: HYDROmorphone 2 MG/1 ML VIAL IV PRN ×2 (01:25→11:26)
[2018-08-28 05:49] LABS: Calcium 8.7 MG/DL (8.5-10.1); Osmolality,Calculated 292.8 MOS/KG (273-304)
[2018-08-28] MEDS: ALLOPURINOL 100 MG TABLET PER TUBE SCH (08:29)
[2018-08-28] MEDS: METOPROLOL TARTRATE 100 MG TABLET PER TUBE SCH ×2 (08:29→15:54)
[2018-08-28] MEDS: DIPYRIDAMOLE 50 MG TABLET PER TUBE SCH ×2 (08:30→15:54)
[2018-08-28] MEDS: LOSARTAN 25 MG TABLET PEG SCH (08:30)
[2018-08-28] MEDS: LACTOBACILLUS ACIDOPHILUS/BULGARICUS CAPLET PO SCH (08:30)
[2018-08-28] MEDS: amLODIPine 10 MG TABLET PER TUBE SCH (08:30)
[2018-08-28] MEDS: LORATADINE 10 MG TABLET PER TUBE SCH (08:31)
[2018-08-28] MEDS: POLYETHYLENE GLYCOL POWDER 17 GM PACK PER TUBE SCH (08:33)
[2018-08-28] MEDS: CHOLESTYRAMINE 4 GM PACK PO SCH (08:33)
[2018-08-28] MEDS: BUDESONIDE/FORMOTEROL 80-4.5 INHALER 6.9 GM INH SCH ×2 (08:40→15:55)
[2018-08-28] MEDS: MELATONIN 3 MG TABLET PER TUBE SCH (22:08)
[2018-08-28] MEDS: SERTRALINE 100 MG TABLET PEG SCH (22:08)
[2018-08-28] MEDS: cloNIDine 0.1 MG TABLET PER TUBE SCH (22:08)
[2018-08-29] MEDS: ALBUTEROL/IPRATROPIUM 3 ML NEB RESP TX SCH ×4 (00:46→18:54)
[2018-08-29 04:37] LABS: Basophils % 0.4 % (0.0-0.8); Eosinophils # 0.3 10*3/uL (0.0-0.87); Hematocrit 32.1 VOL% (42.0-52.0); Hemoglobin 10.2 GM/DL (14.0-18.0); Immature Granulocytes % 0.5 %; Immature Granulocytes Absolute 0.04 #; Lymphocytes # 1.6 10*3/uL (1.4-4.0); Lymphocytes % 19.2 % (21.2-54.2); Mean Corpuscular HGB Conc 31.8 GM/DL (32-36); Mean Corpuscular Hemoglobin 28 PG (27-34); Mean Platelet Volume 10.7 FL (9.6-12.0); Monocytes # 0.6 10*3/uL (0.11-0.8); Monocytes % 7.4 % (1.7-12.7); Neutrophils # 5.9 10*3/uL (1.4-7.4); Neutrophils % 69.5 % (38.7-73.9); Platelet Count 158 T/CUMM (130-400); Red Blood Count 3.69 MC/CUMM (3.8-5.5); Red Cell Distribution Width 14.6 % (9.3-17.3); White Blood Count 8.5 T/CUMM (4-12)
[2018-08-29 05:04] LABS: Calcium 8.6 MG/DL (8.5-10.1); Osmolality,Calculated 285.3 MOS/KG (273-304); Potassium 3.8 MMOL/L (3.5-5.1)
[2018-08-29] MEDS: CHOLESTYRAMINE 4 GM PACK PO SCH (09:04)
[2018-08-29] MEDS: POLYETHYLENE GLYCOL POWDER 17 GM PACK PER TUBE SCH ×2 (09:04→09:10)
[2018-08-29] MEDS: BUDESONIDE/FORMOTEROL 80-4.5 INHALER 6.9 GM INH SCH ×2 (09:04→16:32)
[2018-08-29] MEDS: LACTOBACILLUS ACIDOPHILUS/BULGARICUS CAPLET PO SCH (09:04)
[2018-08-29] MEDS: LOSARTAN 25 MG TABLET PEG SCH (09:05)
[2018-08-29] MEDS: DIPYRIDAMOLE 50 MG TABLET PER TUBE SCH ×2 (09:05→16:31)
[2018-08-29] MEDS: ALLOPURINOL 100 MG TABLET PER TUBE SCH (09:05)
[2018-08-29] MEDS: METOPROLOL TARTRATE 100 MG TABLET PER TUBE SCH ×2 (09:05→16:31)
[2018-08-29] MEDS: amLODIPine 10 MG TABLET PER TUBE SCH (09:05)
[2018-08-29] MEDS: LORATADINE 10 MG TABLET PER TUBE SCH (09:05)
[2018-08-29] MEDS ORDERED: GLUCAGON 1 MG VIAL IM PRN (13:35)
[2018-08-29] MEDS ORDERED: DEXTROSE 50% 25 GM/50 ML SYRINGE IV PRN (13:35)
[2018-08-29] MEDS: POTASSIUM CHLORIDE 20 MEQ/15 ML UDCUP PER TUBE SCH (16:31)
[2018-08-29] MEDS: INSULIN REGULAR 100 UNIT/ML SUBCUT SCH ×2 (19:25→23:58)
[2018-08-29] MEDS: cloNIDine 0.1 MG TABLET PER TUBE SCH (20:50)
[2018-08-29] MEDS: MELATONIN 3 MG TABLET PER TUBE SCH (20:50)
[2018-08-29] MEDS: SERTRALINE 100 MG TABLET PEG SCH (20:50)
[2018-08-30] MEDS: ALBUTEROL/IPRATROPIUM 3 ML NEB RESP TX SCH ×3 (00:40→11:58)
[2018-08-30] MEDS: INSULIN REGULAR 100 UNIT/ML SUBCUT SCH ×2 (05:57→13:08)
[2018-08-30] MEDS: LACTOBACILLUS ACIDOPHILUS/BULGARICUS CAPLET PO SCH (11:09)
[2018-08-30] MEDS: METOPROLOL TARTRATE 100 MG TABLET PER TUBE SCH ×2 (11:09→20:03)
[2018-08-30] MEDS: LOSARTAN 25 MG TABLET PEG SCH (11:09)
[2018-08-30] MEDS: DIPYRIDAMOLE 50 MG TABLET PER TUBE SCH ×2 (11:09→20:03)
[2018-08-30] MEDS: CHOLESTYRAMINE 4 GM PACK PO SCH (11:09)
[2018-08-30] MEDS: ALLOPURINOL 100 MG TABLET PER TUBE SCH (11:09)
[2018-08-30] MEDS: amLODIPine 10 MG TABLET PER TUBE SCH (11:10)
[2018-08-30] MEDS: LORATADINE 10 MG TABLET PER TUBE SCH (11:10)
[2018-08-30] MEDS: BUDESONIDE/FORMOTEROL 80-4.5 INHALER 6.9 GM INH SCH ×2 (11:10→20:04)
[2018-08-30] MEDS: POLYETHYLENE GLYCOL POWDER 17 GM PACK PER TUBE SCH (11:10)
[2018-08-30 11:50] VITALS: BP 134/96
== END 2018-08-30 16:08 | DRG 239 ==
LOC: N.3E 15:59
PROVIDERS: ADMIT Surgery; ATTEND Surgery

== ENCOUNTER 2018-10-03 06:20 | Inpatient (IN) ==
[2018-10-03 07:31] LABS: Basophils # 0.1 10*3/uL (0.0-0.2); Basophils % 0.7 % (0.0-0.8); Eosinophils # 0.4 10*3/uL (0.0-0.87); Eosinophils % 4.7 % (0.00-10.9); Hematocrit 41.4 VOL% (42.0-52.0); Hemoglobin 13.5 GM/DL (14.0-18.0); Immature Granulocytes % 0.3 %; Immature Granulocytes Absolute 0.03 #; Lymphocytes # 2.3 10*3/uL (1.4-4.0); Lymphocytes % 25.8 % (21.2-54.2); Mean Corpuscular HGB Conc 32.6 GM/DL (32-36); Mean Corpuscular Hemoglobin 28 PG (27-34); Mean Corpuscular Volume 84.8 FL (87-102); Mean Platelet Volume 9.5 FL (9.6-12.0); Monocytes # 0.6 10*3/uL (0.11-0.8); Monocytes % 6.5 % (1.7-12.7); Neutrophils # 5.6 10*3/uL (1.4-7.4); Platelet Count 186 T/CUMM (130-400); Red Blood Count 4.88 MC/CUMM (3.8-5.5); Red Cell Distribution Width 15.6 % (9.3-17.3); White Blood Count 9.1 T/CUMM (4-12)
[2018-10-03] MEDS ORDERED: ceFAZolin 1,000 MG VIAL ONE (07:32)
[2018-10-03] MEDS ORDERED: FAMOTIDINE 20 MG/2 ML VIAL IV ONE ×2 (07:54→08:01)
[2018-10-03 07:59] LABS: Albumin 2.8 G/DL (3.4-5.0); Bilirubin,Total 0.6 MG/DL (0.2-1.0); Calcium 9.3 MG/DL (8.5-10.1); Osmolality,Calculated 273.8 MOS/KG (273-304); Potassium 3.9 MMOL/L (3.5-5.1); Total Protein 8.9 G/DL (6.4-8.3)
[2018-10-03] MEDS ORDERED: LACTATED RINGERS 1,000 ML IV SCH (08:00)
[2018-10-03] MEDS ORDERED: ceFAZolin 1,000 MG in SYRINGE 1 EACH IV ONE (09:00)
[2018-10-03] MEDS ORDERED: PROPOFOL 200 MG/20 ML VIAL IV ONE (10:44)
[2018-10-03] MEDS ORDERED: SEVOFLURANE 1 UNIT/15 MINUTE INH ONE (10:45)
[2018-10-03] MEDS ORDERED: MIDAZOLAM 2 MG/2 ML VIAL ONE (10:45)
[2018-10-03] MEDS ORDERED: fentaNYL 100 MCG/2 ML VIAL ONE (10:46)
[2018-10-03] MEDS ORDERED: LABETALOL 100 MG/20 ML VIAL IV ONE (11:07)
[2018-10-03] MEDS ORDERED: LABETALOL 20 MG/4 ML SYRINGE IV ONE (11:08)
[2018-10-03 13:09] VITALS: BP 165/94
== END 2018-10-03 12:45 | DRG 476 ==
LOC: N.OR 06:20 → N.SDSINP 06:20 → N.OR 12:45 → EDSTATUS 12:45 → N.SDSINP 10-05 12:19
PROVIDERS: ADMIT Surgery; ATTEND Surgery

== ENCOUNTER 2018-10-31 09:05 | Inpatient (IN) ==
[2018-10-31] MEDS ORDERED: SODIUM CHLORIDE 0.9% 500 ML IV STA (10:01)
[2018-10-31] MEDS ORDERED: methylPREDNISolone SOD SUC 125 MG/2 ML VIAL IV STA (10:01)
[2018-10-31] MEDS ORDERED: ALBUTEROL/IPRATROPIUM 3 ML NEB RESP TX STA (10:01)
[2018-10-31] MEDS ORDERED: PIPERACILLIN/TAZOBACTAM 3,375 MG in SODIUM CHLORIDE 0.9% 100 ML IV STA (10:01)
[2018-10-31 10:23] LABS: Basophils # 0.1 10*3/uL (0.0-0.2); Basophils % 0.4 % (0.0-0.8); Eosinophils # 0.6 10*3/uL (0.0-0.87); Hematocrit 39.7 VOL% (42.0-52.0); Hemoglobin 12.4 GM/DL (14.0-18.0); Immature Granulocytes % 0.7 %; Lymphocytes # 1.9 10*3/uL (1.4-4.0); Mean Corpuscular HGB Conc 31.2 GM/DL (32-36); Mean Corpuscular Hemoglobin 27 PG (27-34); Mean Corpuscular Volume 86.1 FL (87-102); Mean Platelet Volume 9.9 FL (9.6-12.0); Monocytes # 0.7 10*3/uL (0.11-0.8); Monocytes % 4.8 % (1.7-12.7); Neutrophils % 77.1 % (38.7-73.9); Platelet Count 292 T/CUMM (130-400); Red Blood Count 4.61 MC/CUMM (3.8-5.5); Red Cell Distribution Width 15.5 % (9.3-17.3); White Blood Count 14.3 T/CUMM (4-12)
[2018-10-31 10:31] LABS: PT Patient Result 10.7 SECS
[2018-10-31 10:58] LABS: Alanine Aminotransferase 80 U/L (16-61); Albumin 2.5 G/DL (3.4-5.0); Alkaline Phosphatase 193 U/L (45-117); Aspartate Amino Transferase 41 U/L (0-37); Bilirubin,Total < 0.39 MG/DL (0.2-1.0); Blood Urea Nitrogen 22 MG/DL (7-18); Calcium 9.2 MG/DL (8.5-10.1); Glucose 93 MG/DL (74-106); Osmolality,Calculated 279.5 MOS/KG (273-304); Potassium 3.7 MMOL/L (3.5-5.1); Sodium 139 MMOL/L (136-145); Total Protein 9.5 G/DL (6.4-8.3)
[2018-10-31 11:28] LABS: Sedimentation Rate-Westergren 26 MM/HR (0-20)
[2018-10-31 11:41] LABS: Amorphous Crystals,Urine Moderate /HPF (Few); Apearance,Urine CLOUDY (Clear); Bilirubin,Urine Negative (Negative); Blood, Urine Negative (Negative); Glucose,Urine (UA) Negative (Negative); Ketones,Urine Negative (Negative); Mucus,Urine Occasional /LPF (Occasional); Nitrite,Urine Negative (Negative); Protein,Urine Negative; RBC,Urine 6 /HPF (0-4); Urine Color Yellow (Yellow); Urine Specific Gravity 1.016 (1.001-1.035)
[2018-10-31] MEDS ORDERED: GLUCAGON 1 MG VIAL IM PRN (16:53)
[2018-10-31] MEDS ORDERED: DEXTROSE 50% 25 GM/50 ML SYRINGE IV PRN (16:53)
[2018-10-31] MEDS ORDERED: MAGNESIUM HYDROXIDE SUSP 30 ML UDCUP PEG PRN (16:53)
[2018-10-31] MEDS ORDERED: ACETAMINOPHEN 325 MG TABLET PO PRN ×2 (16:53→16:59)
[2018-10-31] MEDS ORDERED: ACETAMINOPHEN 325 MG TABLET PEG PRN (16:53)
[2018-10-31] MEDS ORDERED: ALBUTEROL/IPRATROPIUM 3 ML NEB RESP TX PRN (16:53)
[2018-10-31] MEDS ORDERED: ONDANSETRON 4 MG/2 ML VIAL IV PRN ×2 (16:53→16:59)
[2018-10-31] MEDS ORDERED: SODIUM CHLORIDE 0.9% 1,000 ML IV SCH (16:53)
[2018-10-31] MEDS ORDERED: oxyCODONE/ACETAMINOPHEN 5-325 MG TABLET PO PRN (16:59)
[2018-10-31] MEDS: ALBUTEROL/IPRATROPIUM 3 ML NEB RESP TX SCH ×2 (17:17→19:41)
[2018-10-31] MEDS: INSULIN REGULAR 100 UNIT/ML SUBCUT SCH (19:58)
[2018-10-31] MEDS: BUDESONIDE/FORMOTEROL 80-4.5 INHALER 6.9 GM INH SCH (20:53)
[2018-10-31] MEDS: LACTATED RINGERS 1,000 ML IV SCH (20:53)
[2018-10-31] MEDS: DIPYRIDAMOLE 50 MG TABLET PEG SCH (20:53)
[2018-10-31] MEDS: PIPERACILLIN/TAZOBACTAM 3,375 MG in SODIUM CHLORIDE 0.9% 100 ML IV SCH (20:53)
[2018-10-31] MEDS: methylPREDNISolone 4 MG TABLET PEG SCH (20:54)
[2018-10-31] MEDS: METOPROLOL TARTRATE 100 MG TABLET PEG SCH (20:54)
[2018-10-31] MEDS: cloNIDine 0.1 MG TABLET PEG SCH (20:55)
[2018-10-31] MEDS ORDERED: NON-FORMULARY MEDICATION (Chlorpheniramine/Phenylephrine [Ed-A-Hist 4 Mg-10 Mg Tablet] 1 E PEG SCH (21:00)
[2018-11-01] MEDS: ALBUTEROL/IPRATROPIUM 3 ML NEB RESP TX SCH ×7 (00:26→22:38)
[2018-11-01] MEDS: INSULIN REGULAR 100 UNIT/ML SUBCUT SCH ×4 (00:35→20:45)
[2018-11-01] MEDS: MORPHINE 4 MG/1 ML VIAL IV PRN (03:26)
[2018-11-01] MEDS: PIPERACILLIN/TAZOBACTAM 3,375 MG in SODIUM CHLORIDE 0.9% 100 ML IV SCH ×3 (03:27→20:45)
[2018-11-01 05:23] LABS: Basophils % 0.1 % (0.0-0.8); Eosinophils % 0.1 % (0.00-10.9); Hematocrit 37.4 VOL% (42.0-52.0); Hemoglobin 11.6 GM/DL (14.0-18.0); Immature Granulocytes % 0.6 %; Immature Granulocytes Absolute 0.09 #; Lymphocytes # 1.7 10*3/uL (1.4-4.0); Lymphocytes % 11.9 % (21.2-54.2); Mean Corpuscular Hemoglobin 27 PG (27-34); Mean Platelet Volume 10.1 FL (9.6-12.0); Monocytes # 0.9 10*3/uL (0.11-0.8); Monocytes % 6.3 % (1.7-12.7); Neutrophils # 11.9 10*3/uL (1.4-7.4); Platelet Count 300 T/CUMM (130-400); Red Blood Count 4.35 MC/CUMM (3.8-5.5); Red Cell Distribution Width 15.6 % (9.3-17.3); White Blood Count 14.7 T/CUMM (4-12)
[2018-11-01 05:45] LABS: Albumin 2.1 G/DL (3.4-5.0); Bilirubin,Total 0.4 MG/DL (0.2-1.0); Calcium 8.9 MG/DL (8.5-10.1); Osmolality,Calculated 286.1 MOS/KG (273-304); Potassium 4.1 MMOL/L (3.5-5.1); Total Protein 8.4 G/DL (6.4-8.3)
[2018-11-01] MEDS ORDERED: PANTOPRAZOLE 40 MG TABLET PO SCH (09:00)
[2018-11-01] MEDS: BUDESONIDE/FORMOTEROL 80-4.5 INHALER 6.9 GM INH SCH ×2 (09:30→20:47)
[2018-11-01] MEDS ORDERED: PROPOFOL 200 MG/20 ML VIAL IV ONE (11:46)
[2018-11-01] MEDS ORDERED: fentaNYL 100 MCG/2 ML VIAL ONE (11:46)
[2018-11-01] MEDS ORDERED: SEVOFLURANE 1 UNIT/15 MINUTE INH ONE (11:46)
[2018-11-01] MEDS ORDERED: LABETALOL 20 MG/4 ML SYRINGE IV ONE (12:09)
[2018-11-01] MEDS ORDERED: hydrALAZINE 20 MG/1 ML VIAL IV ONE (12:10)
[2018-11-01] MEDS ORDERED: HYDROmorphone 2 MG/1 ML VIAL IV PRN (12:11)
[2018-11-01] MEDS ORDERED: ONDANSETRON 4 MG/2 ML VIAL IV PRN (12:11)
[2018-11-01] MEDS ORDERED: hydrALAZINE 20 MG/1 ML VIAL ONE (12:13)
[2018-11-01] MEDS ORDERED: hydrALAZINE 20 MG/1 ML VIAL IV PRN (12:26)
[2018-11-01] MEDS: DIPYRIDAMOLE 50 MG TABLET PEG SCH ×2 (16:36→20:47)
[2018-11-01] MEDS: ASPIRIN 325 MG TABLET PEG SCH (16:36)
[2018-11-01] MEDS: POLYETHYLENE GLYCOL POWDER 17 GM PACK PEG SCH (16:36)
[2018-11-01] MEDS: amLODIPine 10 MG TABLET PEG SCH (16:55)
[2018-11-01] MEDS: LEVOFLOXACIN 750 MG TABLET PEG SCH (16:55)
[2018-11-01] MEDS: MULTIVITAMIN LIQUID (CENTRUM) 60 ML BOTTLE PEG SCH (16:55)
[2018-11-01] MEDS: LACTOBACILLUS ACIDOPHILUS/BULGARICUS CAPLET PEG SCH (16:55)
[2018-11-01] MEDS: PANTOPRAZOLE 40 MG TABLET PO SCH (16:56)
[2018-11-01] MEDS: METOPROLOL TARTRATE 100 MG TABLET PEG SCH ×2 (16:56→20:46)
[2018-11-01] MEDS: SERTRALINE 50 MG TABLET PEG SCH (16:56)
[2018-11-01] MEDS: LOSARTAN 25 MG TABLET PEG SCH (16:56)
[2018-11-01] MEDS: ALLOPURINOL 100 MG TABLET PEG SCH (16:57)
[2018-11-01] MEDS: VANCOMYCIN INJ 1,000 MG in SODIUM CHLORIDE 0.9% 250 ML IV SCH (17:07)
[2018-11-01] MEDS: LACTATED RINGERS 1,000 ML IV SCH (17:14)
[2018-11-01] MEDS: cloNIDine 0.1 MG TABLET PEG SCH (20:46)
[2018-11-02] MEDS: VANCOMYCIN INJ 1,000 MG in SODIUM CHLORIDE 0.9% 250 ML IV SCH ×2 (01:09→15:58)
[2018-11-02] MEDS: INSULIN REGULAR 100 UNIT/ML SUBCUT SCH ×4 (01:16→17:19)
[2018-11-02] MEDS: ALBUTEROL/IPRATROPIUM 3 ML NEB RESP TX SCH ×5 (02:35→20:16)
[2018-11-02] MEDS: PIPERACILLIN/TAZOBACTAM 3,375 MG in SODIUM CHLORIDE 0.9% 100 ML IV SCH ×3 (03:30→21:15)
[2018-11-02] MEDS: MORPHINE 4 MG/1 ML VIAL IV PRN ×2 (03:31→08:51)
[2018-11-02] MEDS: methylPREDNISolone 4 MG TABLET PEG SCH (07:40)
[2018-11-02] MEDS: LOSARTAN 25 MG TABLET PEG SCH (08:11)
[2018-11-02] MEDS: METOPROLOL TARTRATE 100 MG TABLET PEG SCH ×2 (08:12→21:15)
[2018-11-02] MEDS: amLODIPine 10 MG TABLET PEG SCH (08:12)
[2018-11-02] MEDS: BUDESONIDE/FORMOTEROL 80-4.5 INHALER 6.9 GM INH SCH ×2 (08:56→21:26)
[2018-11-02] MEDS: LACTATED RINGERS 1,000 ML IV SCH ×2 (09:35→12:59)
[2018-11-02] MEDS ORDERED: PROPOFOL 200 MG/20 ML VIAL IV ONE (10:27)
[2018-11-02] MEDS ORDERED: SEVOFLURANE 1 UNIT/15 MINUTE INH ONE (10:27)
[2018-11-02] MEDS ORDERED: fentaNYL 100 MCG/2 ML VIAL ONE (10:28)
[2018-11-02] MEDS ORDERED: ONDANSETRON 4 MG/2 ML VIAL ONE (10:28)
[2018-11-02] MEDS: ASPIRIN 325 MG TABLET PEG SCH (10:53)
[2018-11-02] MEDS: POLYETHYLENE GLYCOL POWDER 17 GM PACK PEG SCH (11:39)
[2018-11-02] MEDS: LACTOBACILLUS ACIDOPHILUS/BULGARICUS CAPLET PEG SCH (11:39)
[2018-11-02] MEDS: SERTRALINE 50 MG TABLET PEG SCH (11:40)
[2018-11-02] MEDS: LEVOFLOXACIN 750 MG TABLET PEG SCH (11:41)
[2018-11-02] MEDS: PANTOPRAZOLE 40 MG TABLET PO SCH (11:41)
[2018-11-02] MEDS: ALLOPURINOL 100 MG TABLET PEG SCH (11:42)
[2018-11-02] MEDS: DIPYRIDAMOLE 50 MG TABLET PEG SCH ×2 (11:42→21:25)
[2018-11-02] MEDS: POTASSIUM CHLORIDE 20 MEQ/15 ML UDCUP PEG SCH (11:42)
[2018-11-02] MEDS: MULTIVITAMIN LIQUID (CENTRUM) 60 ML BOTTLE PEG SCH (11:51)
[2018-11-02] MEDS: DESITIN 4OZ/NYSTATIN 15 GRAM MIXTURE PASTE TOP SCH ×2 (17:18→21:25)
[2018-11-02] MEDS: cloNIDine 0.1 MG TABLET PEG SCH (21:15)
[2018-11-03] MEDS: INSULIN REGULAR 100 UNIT/ML SUBCUT SCH ×4 (00:09→17:50)
[2018-11-03] MEDS: ALBUTEROL/IPRATROPIUM 3 ML NEB RESP TX SCH ×6 (00:14→19:49)
[2018-11-03] MEDS: VANCOMYCIN INJ 1,000 MG in SODIUM CHLORIDE 0.9% 250 ML IV SCH ×2 (01:35→15:42)
[2018-11-03 05:41] LABS: Calcium 8.4 MG/DL (8.5-10.1); Osmolality,Calculated 293.6 MOS/KG (273-304); Potassium 3.6 MMOL/L (3.5-5.1)
[2018-11-03] MEDS ORDERED: FAMOTIDINE 20 MG TABLET PO ONE (06:00)
[2018-11-03] MEDS ORDERED: DIAZEPAM 5 MG TABLET PO ONE (06:00)
[2018-11-03] MEDS: PIPERACILLIN/TAZOBACTAM 3,375 MG in SODIUM CHLORIDE 0.9% 100 ML IV SCH (06:51)
[2018-11-03] MEDS ORDERED: POTASSIUM PHOSPHATE 15 MMOL in SODIUM CHLORIDE 0.9% 100 ML IV ONE (08:16)
[2018-11-03] MEDS: ASPIRIN 325 MG TABLET PEG SCH (10:16)
[2018-11-03] MEDS: MULTIVITAMIN LIQUID (CENTRUM) 60 ML BOTTLE PEG SCH (10:16)
[2018-11-03] MEDS: LOSARTAN 25 MG TABLET PEG SCH (10:16)
[2018-11-03] MEDS: LACTOBACILLUS ACIDOPHILUS/BULGARICUS CAPLET PEG SCH (10:16)
[2018-11-03] MEDS: DIPYRIDAMOLE 50 MG TABLET PEG SCH ×2 (10:17→21:58)
[2018-11-03] MEDS: DESITIN 4OZ/NYSTATIN 15 GRAM MIXTURE PASTE TOP SCH ×2 (10:17→20:57)
[2018-11-03] MEDS: POLYETHYLENE GLYCOL POWDER 17 GM PACK PEG SCH (10:17)
[2018-11-03] MEDS: BUDESONIDE/FORMOTEROL 80-4.5 INHALER 6.9 GM INH SCH ×2 (10:17→20:57)
[2018-11-03] MEDS: METOPROLOL TARTRATE 100 MG TABLET PEG SCH ×2 (10:17→20:56)
[2018-11-03] MEDS: LEVOFLOXACIN 750 MG TABLET PEG SCH (10:17)
[2018-11-03] MEDS: PANTOPRAZOLE 40 MG TABLET PO SCH (10:17)
[2018-11-03] MEDS: amLODIPine 10 MG TABLET PEG SCH (10:17)
[2018-11-03] MEDS: ALLOPURINOL 100 MG TABLET PEG SCH (10:18)
[2018-11-03] MEDS: SERTRALINE 50 MG TABLET PEG SCH (10:18)
[2018-11-03] MEDS: MORPHINE 4 MG/1 ML VIAL IV PRN (10:18)
[2018-11-03] MEDS ORDERED: ACETAMINOPHEN 1,000 MG/100 ML VIAL IV ONE (14:02)
[2018-11-03] MEDS ORDERED: fentaNYL 100 MCG/2 ML VIAL ONE (14:09)
[2018-11-03] MEDS ORDERED: PROPOFOL 200 MG/20 ML VIAL IV ONE (14:09)
[2018-11-03] MEDS ORDERED: SEVOFLURANE 1 UNIT/15 MINUTE INH ONE (14:10)
[2018-11-03] MEDS ORDERED: ACETAMINOPHEN INJ 1,000 MG in PREMIX 1 EACH IV STA (14:10)
[2018-11-03] MEDS ORDERED: ESMOLOL 100 MG/10 ML VIAL IV ONE (14:10)
[2018-11-03] MEDS: DEXTROSE 5% 1,000 ML IV SCH ×2 (15:42→17:50)
[2018-11-03] MEDS: ERTAPENEM 1,000 MG in SODIUM CHLORIDE 0.9% 100 ML IV SCH (15:44)
[2018-11-03] MEDS: cloNIDine 0.1 MG TABLET PEG SCH (20:56)
[2018-11-03] MEDS: VANCOMYCIN INJ 1,250 MG in SODIUM CHLORIDE 0.9% 250 ML IV SCH (20:56)
[2018-11-03] MEDS ORDERED: LORazepam 2 MG/1 ML VIAL IV ONE (23:13)
[2018-11-04] MEDS: INSULIN REGULAR 100 UNIT/ML SUBCUT SCH ×5 (00:36→23:49)
[2018-11-04] MEDS: ALBUTEROL/IPRATROPIUM 3 ML NEB RESP TX SCH ×7 (00:39→22:37)
[2018-11-04] MEDS: DEXTROSE 5% 1,000 ML IV SCH ×2 (00:50→04:00)
[2018-11-04 05:02] LABS: Calcium 8.1 MG/DL (8.5-10.1); Potassium 3.2 MMOL/L (3.5-5.1)
[2018-11-04] MEDS: MULTIVITAMIN LIQUID (CENTRUM) 60 ML BOTTLE PEG SCH (09:09)
[2018-11-04] MEDS: ASPIRIN 325 MG TABLET PEG SCH (09:09)
[2018-11-04] MEDS: LACTOBACILLUS ACIDOPHILUS/BULGARICUS CAPLET PEG SCH (09:09)
[2018-11-04] MEDS: SERTRALINE 50 MG TABLET PEG SCH (09:10)
[2018-11-04] MEDS: LOSARTAN 25 MG TABLET PEG SCH (09:11)
[2018-11-04] MEDS: ALLOPURINOL 100 MG TABLET PEG SCH (09:11)
[2018-11-04] MEDS: POTASSIUM CHLORIDE 20 MEQ/15 ML UDCUP PEG SCH (09:11)
[2018-11-04] MEDS: amLODIPine 10 MG TABLET PEG SCH (09:11)
[2018-11-04] MEDS: METOPROLOL TARTRATE 100 MG TABLET PEG SCH ×2 (09:11→21:41)
[2018-11-04] MEDS: POLYETHYLENE GLYCOL POWDER 17 GM PACK PEG SCH (09:11)
[2018-11-04] MEDS: PANTOPRAZOLE 40 MG TABLET PO SCH (09:11)
[2018-11-04] MEDS: BUDESONIDE/FORMOTEROL 80-4.5 INHALER 6.9 GM INH SCH ×2 (09:13→21:53)
[2018-11-04] MEDS: DESITIN 4OZ/NYSTATIN 15 GRAM MIXTURE PASTE TOP SCH ×2 (09:13→22:19)
[2018-11-04] MEDS: VANCOMYCIN INJ 1,250 MG in SODIUM CHLORIDE 0.9% 250 ML IV SCH ×2 (09:26→21:40)
[2018-11-04] MEDS: DIPYRIDAMOLE 50 MG TABLET PEG SCH ×2 (10:02→21:39)
[2018-11-04] MEDS: ERTAPENEM 1,000 MG in SODIUM CHLORIDE 0.9% 100 ML IV SCH (11:37)
[2018-11-04] MEDS: DEXTROSE 5% KCL 20 MEQ 20 MEQ/1,000 ML BAG IV SCH ×2 (11:39→21:40)
[2018-11-04] MEDS: POTASSIUM PHOS/SOD PHOS POWDER 250 MG PACK PEG SCH ×2 (15:30→21:41)
[2018-11-04] MEDS: cloNIDine 0.1 MG TABLET PEG SCH (21:40)
[2018-11-04] MEDS: MORPHINE 4 MG/1 ML VIAL IV PRN (22:05)
[2018-11-05] MEDS: ALBUTEROL/IPRATROPIUM 3 ML NEB RESP TX SCH ×6 (03:04→22:00)
[2018-11-05] MEDS: MORPHINE 4 MG/1 ML VIAL IV PRN ×2 (06:00→21:12)
[2018-11-05] MEDS: DEXTROSE 5% KCL 20 MEQ 20 MEQ/1,000 ML BAG IV SCH ×4 (07:15→21:19)
[2018-11-05] MEDS: INSULIN REGULAR 100 UNIT/ML SUBCUT SCH ×3 (07:43→18:18)
[2018-11-05] MEDS: LACTOBACILLUS ACIDOPHILUS/BULGARICUS CAPLET PEG SCH (09:27)
[2018-11-05] MEDS: POTASSIUM PHOS/SOD PHOS POWDER 250 MG PACK PEG SCH ×3 (09:27→20:44)
[2018-11-05] MEDS: POLYETHYLENE GLYCOL POWDER 17 GM PACK PEG SCH (09:28)
[2018-11-05] MEDS: PANTOPRAZOLE 40 MG TABLET PO SCH (09:28)
[2018-11-05] MEDS: ASPIRIN 325 MG TABLET PEG SCH (09:28)
[2018-11-05] MEDS: SERTRALINE 50 MG TABLET PEG SCH (09:28)
[2018-11-05] MEDS: ALLOPURINOL 100 MG TABLET PEG SCH (09:28)
[2018-11-05] MEDS: amLODIPine 10 MG TABLET PEG SCH (09:29)
[2018-11-05] MEDS: MULTIVITAMIN LIQUID (CENTRUM) 60 ML BOTTLE PEG SCH (09:29)
[2018-11-05] MEDS: METOPROLOL TARTRATE 100 MG TABLET PEG SCH ×2 (09:30→20:44)
[2018-11-05] MEDS: LOSARTAN 25 MG TABLET PEG SCH (09:30)
[2018-11-05] MEDS: DESITIN 4OZ/NYSTATIN 15 GRAM MIXTURE PASTE TOP SCH ×2 (09:38→20:45)
[2018-11-05] MEDS: BUDESONIDE/FORMOTEROL 80-4.5 INHALER 6.9 GM INH SCH ×2 (09:38→20:45)
[2018-11-05] MEDS: VANCOMYCIN INJ 1,250 MG in SODIUM CHLORIDE 0.9% 250 ML IV SCH ×2 (09:46→21:36)
[2018-11-05] MEDS: DIPYRIDAMOLE 50 MG TABLET PEG SCH ×2 (09:57→21:27)
[2018-11-05] MEDS: ERTAPENEM 1,000 MG in SODIUM CHLORIDE 0.9% 100 ML IV SCH (11:05)
[2018-11-05] MEDS: cloNIDine 0.1 MG TABLET PEG SCH (20:44)
[2018-11-06] MEDS: VANCOMYCIN INJ 1,250 MG in SODIUM CHLORIDE 0.9% 250 ML IV SCH ×4 (00:26→23:51)
[2018-11-06] MEDS: INSULIN REGULAR 100 UNIT/ML SUBCUT SCH ×5 (00:31→23:14)
[2018-11-06] MEDS: ALBUTEROL/IPRATROPIUM 3 ML NEB RESP TX SCH ×6 (03:10→23:32)
[2018-11-06 05:49] LABS: Basophils # 0.1 10*3/uL (0.0-0.2); Basophils % 0.4 % (0.0-0.8); Eosinophils # 1.2 10*3/uL (0.0-0.87); Eosinophils % 10.2 % (0.00-10.9); Hematocrit 23.8 VOL% (42.0-52.0); Hemoglobin 7.9 GM/DL (14.0-18.0); Immature Granulocytes % 0.6 %; Immature Granulocytes Absolute 0.07 #; Lymphocytes # 1.5 10*3/uL (1.4-4.0); Lymphocytes % 12.2 % (21.2-54.2); Mean Corpuscular HGB Conc 33.2 GM/DL (32-36); Mean Corpuscular Hemoglobin 28 PG (27-34); Mean Platelet Volume 10.6 FL (9.6-12.0); Monocytes # 0.6 10*3/uL (0.11-0.8); Monocytes % 4.9 % (1.7-12.7); Neutrophils # 8.6 10*3/uL (1.4-7.4); Neutrophils % 71.7 % (38.7-73.9); Platelet Count 192 T/CUMM (130-400); Red Cell Distribution Width 15.7 % (9.3-17.3)
[2018-11-06 06:01] LABS: Calcium 8.1 MG/DL (8.5-10.1); Osmolality,Calculated 279.5 MOS/KG (273-304); Potassium 3.6 MMOL/L (3.5-5.1)
[2018-11-06] MEDS: DEXTROSE 5% KCL 20 MEQ 20 MEQ/1,000 ML BAG IV SCH ×3 (07:10→23:55)
[2018-11-06 07:33] LABS: Hematocrit 25.2 VOL% (42.0-52.0); Hemoglobin 7.9 GM/DL (14.0-18.0)
[2018-11-06] MEDS ORDERED: SODIUM CHLORIDE 0.9% 1,000 ML IV PRN (08:07)
[2018-11-06] MEDS ORDERED: diphenhydrAMINE 50 MG/1 ML VIAL IV ONE (08:30)
[2018-11-06] MEDS: POTASSIUM PHOS/SOD PHOS POWDER 250 MG PACK PEG SCH ×3 (08:30→21:34)
[2018-11-06] MEDS: ASPIRIN 325 MG TABLET PEG SCH (08:30)
[2018-11-06] MEDS ORDERED: ACETAMINOPHEN 325 MG TABLET PO ONE (08:30)
[2018-11-06] MEDS: LACTOBACILLUS ACIDOPHILUS/BULGARICUS CAPLET PEG SCH (08:30)
[2018-11-06] MEDS ORDERED: FUROSEMIDE 40 MG/4 ML VIAL IV ONE ×2 (08:30→23:30)
[2018-11-06] MEDS: METOPROLOL TARTRATE 100 MG TABLET PEG SCH ×2 (08:35→21:34)
[2018-11-06] MEDS: SERTRALINE 50 MG TABLET PEG SCH (08:36)
[2018-11-06] MEDS: DESITIN 4OZ/NYSTATIN 15 GRAM MIXTURE PASTE TOP SCH ×2 (08:38→21:41)
[2018-11-06] MEDS: BUDESONIDE/FORMOTEROL 80-4.5 INHALER 6.9 GM INH SCH ×2 (08:38→21:36)
[2018-11-06] MEDS: DIPYRIDAMOLE 50 MG TABLET PEG SCH ×2 (08:39→21:41)
[2018-11-06] MEDS: MULTIVITAMIN LIQUID (CENTRUM) 60 ML BOTTLE PEG SCH (08:39)
[2018-11-06] MEDS: POLYETHYLENE GLYCOL POWDER 17 GM PACK PEG SCH (08:40)
[2018-11-06] MEDS: LOSARTAN 25 MG TABLET PEG SCH (08:41)
[2018-11-06] MEDS: amLODIPine 10 MG TABLET PEG SCH (08:41)
[2018-11-06] MEDS: ALLOPURINOL 100 MG TABLET PEG SCH (08:42)
[2018-11-06] MEDS: PANTOPRAZOLE 40 MG TABLET PO SCH (09:49)
[2018-11-06] MEDS: ERTAPENEM 1,000 MG in SODIUM CHLORIDE 0.9% 100 ML IV SCH (10:32)
[2018-11-06] MEDS: cloNIDine 0.1 MG TABLET PEG SCH (21:34)
[2018-11-07 01:24] LABS: Hematocrit 33.5 VOL% (42.0-52.0); Hemoglobin 10.7 GM/DL (14.0-18.0)
[2018-11-07 01:44] LABS: Osmolality,Calculated 282.3 MOS/KG (273-304); Potassium 3.6 MMOL/L (3.5-5.1); Prealbumin 9.5 MG/DL (20-40)
[2018-11-07] MEDS: ALBUTEROL/IPRATROPIUM 3 ML NEB RESP TX SCH ×6 (03:21→23:10)
[2018-11-07] MEDS: INSULIN REGULAR 100 UNIT/ML SUBCUT SCH ×3 (07:00→18:00)
[2018-11-07] MEDS: POTASSIUM CHLORIDE 20 MEQ/15 ML UDCUP PEG SCH (09:51)
[2018-11-07] MEDS: SERTRALINE 50 MG TABLET PEG SCH (09:51)
[2018-11-07] MEDS: POTASSIUM PHOS/SOD PHOS POWDER 250 MG PACK PEG SCH ×3 (09:51→21:29)
[2018-11-07] MEDS: ASPIRIN 325 MG TABLET PEG SCH (09:51)
[2018-11-07] MEDS: LOSARTAN 25 MG TABLET PEG SCH (09:51)
[2018-11-07] MEDS: LACTOBACILLUS ACIDOPHILUS/BULGARICUS CAPLET PEG SCH (09:52)
[2018-11-07] MEDS: ALLOPURINOL 100 MG TABLET PEG SCH (09:52)
[2018-11-07] MEDS: POLYETHYLENE GLYCOL POWDER 17 GM PACK PEG SCH (09:52)
[2018-11-07] MEDS: PANTOPRAZOLE 40 MG TABLET PO SCH (09:52)
[2018-11-07] MEDS: METOPROLOL TARTRATE 100 MG TABLET PEG SCH ×2 (09:52→21:29)
[2018-11-07] MEDS: amLODIPine 10 MG TABLET PEG SCH (09:52)
[2018-11-07] MEDS: MULTIVITAMIN LIQUID (CENTRUM) 60 ML BOTTLE PEG SCH (09:53)
[2018-11-07] MEDS: DIPYRIDAMOLE 50 MG TABLET PEG SCH ×2 (09:53→21:31)
[2018-11-07] MEDS: BUDESONIDE/FORMOTEROL 80-4.5 INHALER 6.9 GM INH SCH ×2 (09:53→21:39)
[2018-11-07] MEDS: DESITIN 4OZ/NYSTATIN 15 GRAM MIXTURE PASTE TOP SCH ×2 (09:53→21:39)
[2018-11-07] MEDS: ERTAPENEM 1,000 MG in SODIUM CHLORIDE 0.9% 100 ML IV SCH (11:14)
[2018-11-07] MEDS: VANCOMYCIN INJ 1,250 MG in SODIUM CHLORIDE 0.9% 250 ML IV SCH (13:11)
[2018-11-07] MEDS: DEXTROSE 5% KCL 20 MEQ 20 MEQ/1,000 ML BAG IV SCH (13:12)
[2018-11-07] MEDS ORDERED: FLUCONAZOLE INJ 400 MG in PREMIX 1 EACH IV ONE (15:30)
[2018-11-07] MEDS: cloNIDine 0.1 MG TABLET PEG SCH (21:29)
[2018-11-08] MEDS: INSULIN REGULAR 100 UNIT/ML SUBCUT SCH ×4 (00:38→18:33)
[2018-11-08] MEDS: DEXTROSE 5% KCL 20 MEQ 20 MEQ/1,000 ML BAG IV SCH ×2 (01:09→05:48)
[2018-11-08] MEDS: VANCOMYCIN INJ 1,250 MG in SODIUM CHLORIDE 0.9% 250 ML IV SCH ×2 (01:10→12:15)
[2018-11-08] MEDS: ALBUTEROL/IPRATROPIUM 3 ML NEB RESP TX SCH ×5 (03:40→19:17)
[2018-11-08] MEDS: LACTOBACILLUS ACIDOPHILUS/BULGARICUS CAPLET PEG SCH (09:26)
[2018-11-08] MEDS: METOPROLOL TARTRATE 100 MG TABLET PEG SCH ×2 (09:26→21:30)
[2018-11-08] MEDS: amLODIPine 10 MG TABLET PEG SCH (09:26)
[2018-11-08] MEDS: PANTOPRAZOLE 40 MG TABLET PO SCH (09:26)
[2018-11-08] MEDS: POTASSIUM PHOS/SOD PHOS POWDER 250 MG PACK PEG SCH ×3 (09:26→21:30)
[2018-11-08] MEDS: ASPIRIN 325 MG TABLET PEG SCH (09:26)
[2018-11-08] MEDS: LOSARTAN 25 MG TABLET PEG SCH (09:26)
[2018-11-08] MEDS: SERTRALINE 50 MG TABLET PEG SCH (09:27)
[2018-11-08] MEDS: ALLOPURINOL 100 MG TABLET PEG SCH (09:27)
[2018-11-08] MEDS: MULTIVITAMIN LIQUID (CENTRUM) 60 ML BOTTLE PEG SCH (09:28)
[2018-11-08] MEDS: BUDESONIDE/FORMOTEROL 80-4.5 INHALER 6.9 GM INH SCH ×2 (09:28→21:31)
[2018-11-08] MEDS: DESITIN 4OZ/NYSTATIN 15 GRAM MIXTURE PASTE TOP SCH ×2 (09:28→21:30)
[2018-11-08] MEDS: DIPYRIDAMOLE 50 MG TABLET PEG SCH (09:28)
[2018-11-08] MEDS: POLYETHYLENE GLYCOL POWDER 17 GM PACK PEG SCH (09:28)
[2018-11-08] MEDS: ERTAPENEM 1,000 MG in SODIUM CHLORIDE 0.9% 100 ML IV SCH (11:17)
[2018-11-08] MEDS: VANCOMYCIN 50 MG/ML 60 ML/BOTTLE PO SCH ×2 (15:53→21:35)
[2018-11-08] MEDS: cloNIDine 0.1 MG TABLET PEG SCH (21:30)
[2018-11-08] MEDS: DIPYRIDAMOLE 25 MG TABLET PEG SCH (21:30)
[2018-11-09] MEDS: INSULIN REGULAR 100 UNIT/ML SUBCUT SCH ×4 (00:05→18:05)
[2018-11-09] MEDS: ALBUTEROL/IPRATROPIUM 3 ML NEB RESP TX SCH ×6 (00:28→19:49)
[2018-11-09 04:16] LABS: Basophils # 0.1 10*3/uL (0.0-0.2); Basophils % 0.5 % (0.0-0.8); Eosinophils # 1.3 10*3/uL (0.0-0.87); Eosinophils % 12.5 % (0.00-10.9); Hematocrit 32.3 VOL% (42.0-52.0); Hemoglobin 10.5 GM/DL (14.0-18.0); Immature Granulocytes % 0.7 %; Immature Granulocytes Absolute 0.07 #; Lymphocytes # 1.7 10*3/uL (1.4-4.0); Lymphocytes % 15.8 % (21.2-54.2); Mean Corpuscular HGB Conc 32.5 GM/DL (32-36); Mean Corpuscular Hemoglobin 28 PG (27-34); Mean Corpuscular Volume 86.1 FL (87-102); Mean Platelet Volume 10.5 FL (9.6-12.0); Monocytes # 0.6 10*3/uL (0.11-0.8); Monocytes % 5.9 % (1.7-12.7); Neutrophils # 6.9 10*3/uL (1.4-7.4); Neutrophils % 64.6 % (38.7-73.9); Platelet Count 214 T/CUMM (130-400); Red Blood Count 3.75 MC/CUMM (3.8-5.5); Red Cell Distribution Width 15.5 % (9.3-17.3); White Blood Count 10.7 T/CUMM (4-12)
[2018-11-09 04:35] LABS: Calcium 8.3 MG/DL (8.5-10.1); Osmolality,Calculated 275.7 MOS/KG (273-304)
[2018-11-09 04:49] LABS: Band Neutrophils 1 % (0-10); Eosinophils 9 % (0-10); Hypochromasia 1+; Lymphocytes 12 % (20-55); Platelet Estimate Adequate; Segmented Neutrophils 69 % (50-85); Total Cells Counted 100
[2018-11-09] MEDS: VANCOMYCIN 50 MG/ML 60 ML/BOTTLE PO SCH ×4 (05:38→21:13)
[2018-11-09] MEDS: DESITIN 4OZ/NYSTATIN 15 GRAM MIXTURE PASTE TOP SCH ×2 (10:50→21:15)
[2018-11-09] MEDS: DIPYRIDAMOLE 25 MG TABLET PEG SCH ×2 (11:00→21:14)
[2018-11-09] MEDS: DEXTROSE 5% KCL 20 MEQ 20 MEQ/1,000 ML BAG IV SCH (11:00)
[2018-11-09] MEDS: ALLOPURINOL 100 MG TABLET PEG SCH (11:01)
[2018-11-09] MEDS: SERTRALINE 50 MG TABLET PEG SCH (11:01)
[2018-11-09] MEDS: METOPROLOL TARTRATE 100 MG TABLET PEG SCH ×2 (11:01→21:14)
[2018-11-09] MEDS: LACTOBACILLUS ACIDOPHILUS/BULGARICUS CAPLET PEG SCH (11:01)
[2018-11-09] MEDS: amLODIPine 10 MG TABLET PEG SCH (11:01)
[2018-11-09] MEDS: PANTOPRAZOLE 40 MG TABLET PO SCH (11:02)
[2018-11-09] MEDS: ASPIRIN 325 MG TABLET PEG SCH (11:02)
[2018-11-09] MEDS: POTASSIUM PHOS/SOD PHOS POWDER 250 MG PACK PEG SCH ×3 (11:02→21:14)
[2018-11-09] MEDS: LOSARTAN 25 MG TABLET PEG SCH (11:03)
[2018-11-09] MEDS: POTASSIUM CHLORIDE 20 MEQ/15 ML UDCUP PEG SCH (11:15)
[2018-11-09] MEDS: MULTIVITAMIN LIQUID (CENTRUM) 60 ML BOTTLE PEG SCH (11:15)
[2018-11-09] MEDS: POLYETHYLENE GLYCOL POWDER 17 GM PACK PEG SCH (17:12)
[2018-11-09] MEDS: predniSONE 20 MG TABLET PO SCH (17:40)
[2018-11-09] MEDS: BUDESONIDE/FORMOTEROL 80-4.5 INHALER 6.9 GM INH SCH ×2 (18:04→21:15)
[2018-11-09] MEDS: cloNIDine 0.1 MG TABLET PEG SCH (21:14)
[2018-11-10] MEDS: ALBUTEROL/IPRATROPIUM 3 ML NEB RESP TX SCH ×6 (00:33→20:00)
[2018-11-10] MEDS: INSULIN REGULAR 100 UNIT/ML SUBCUT SCH ×4 (00:39→18:22)
[2018-11-10] MEDS: VANCOMYCIN 50 MG/ML 60 ML/BOTTLE PO SCH ×4 (02:35→21:48)
[2018-11-10 05:15] LABS: Prealbumin 11.8 MG/DL (20-40)
[2018-11-10] MEDS: DESITIN 4OZ/NYSTATIN 15 GRAM MIXTURE PASTE TOP SCH ×2 (10:40→21:49)
[2018-11-10] MEDS: LACTOBACILLUS ACIDOPHILUS/BULGARICUS CAPLET PEG SCH (11:03)
[2018-11-10] MEDS: METOPROLOL TARTRATE 100 MG TABLET PEG SCH (11:03)
[2018-11-10] MEDS: PANTOPRAZOLE 40 MG TABLET PO SCH (11:03)
[2018-11-10] MEDS: predniSONE 20 MG TABLET PO SCH (11:03)
[2018-11-10] MEDS: SERTRALINE 50 MG TABLET PEG SCH (11:03)
[2018-11-10] MEDS: DIPYRIDAMOLE 25 MG TABLET PEG SCH ×2 (11:03→21:47)
[2018-11-10] MEDS: MULTIVITAMIN LIQUID (CENTRUM) 60 ML BOTTLE PEG SCH (11:04)
[2018-11-10] MEDS: ASPIRIN 325 MG TABLET PEG SCH (11:04)
[2018-11-10] MEDS: ALLOPURINOL 100 MG TABLET PEG SCH (11:04)
[2018-11-10] MEDS: POTASSIUM PHOS/SOD PHOS POWDER 250 MG PACK PEG SCH ×3 (11:04→21:49)
[2018-11-10] MEDS: amLODIPine 10 MG TABLET PEG SCH (11:05)
[2018-11-10] MEDS: LOSARTAN 25 MG TABLET PEG SCH (11:07)
[2018-11-10] MEDS ORDERED: METOPROLOL TARTRATE 50 MG TABLET PEG SCH (11:08)
[2018-11-10] MEDS ORDERED: amLODIPine 5 MG TABLET PEG SCH (11:08)
[2018-11-10] MEDS ORDERED: LOSARTAN 25 MG TABLET PEG SCH (11:08)
[2018-11-10] MEDS: DEXTROSE 5% KCL 20 MEQ 20 MEQ/1,000 ML BAG IV SCH ×2 (11:56→18:38)
[2018-11-10] MEDS: BUDESONIDE/FORMOTEROL 80-4.5 INHALER 6.9 GM INH SCH ×2 (11:57→21:48)
[2018-11-10] MEDS: cloNIDine 0.1 MG TABLET PEG SCH (21:47)
[2018-11-11] MEDS: INSULIN REGULAR 100 UNIT/ML SUBCUT SCH ×5 (00:19→23:54)
[2018-11-11] MEDS: ALBUTEROL/IPRATROPIUM 3 ML NEB RESP TX SCH ×7 (00:34→23:28)
[2018-11-11] MEDS: VANCOMYCIN 50 MG/ML 60 ML/BOTTLE PO SCH ×4 (02:46→20:57)
[2018-11-11] MEDS: POTASSIUM CHLORIDE 20 MEQ/15 ML UDCUP PEG SCH (09:33)
[2018-11-11] MEDS: ASPIRIN 325 MG TABLET PEG SCH (09:33)
[2018-11-11] MEDS: amLODIPine 5 MG TABLET PEG SCH (09:33)
[2018-11-11] MEDS: SERTRALINE 50 MG TABLET PEG SCH (09:33)
[2018-11-11] MEDS: ALLOPURINOL 100 MG TABLET PEG SCH (09:33)
[2018-11-11] MEDS: LACTOBACILLUS ACIDOPHILUS/BULGARICUS CAPLET PEG SCH (09:33)
[2018-11-11] MEDS: LOSARTAN 25 MG TABLET PEG SCH (09:34)
[2018-11-11] MEDS: PANTOPRAZOLE 40 MG TABLET PO SCH (09:34)
[2018-11-11] MEDS: METOPROLOL TARTRATE 50 MG TABLET PEG SCH ×2 (09:34→20:56)
[2018-11-11] MEDS: predniSONE 20 MG TABLET PO SCH (09:34)
[2018-11-11] MEDS: DIPYRIDAMOLE 25 MG TABLET PEG SCH ×2 (09:39→20:56)
[2018-11-11] MEDS: POTASSIUM PHOS/SOD PHOS POWDER 250 MG PACK PEG SCH ×3 (09:39→20:56)
[2018-11-11] MEDS: MULTIVITAMIN LIQUID (CENTRUM) 60 ML BOTTLE PEG SCH (09:44)
[2018-11-11] MEDS: BUDESONIDE/FORMOTEROL 80-4.5 INHALER 6.9 GM INH SCH ×2 (09:44→20:56)
[2018-11-11] MEDS: DESITIN 4OZ/NYSTATIN 15 GRAM MIXTURE PASTE TOP SCH ×2 (09:46→20:57)
[2018-11-11] MEDS: cloNIDine 0.1 MG TABLET PEG SCH (20:56)
[2018-11-12] MEDS: ALBUTEROL/IPRATROPIUM 3 ML NEB RESP TX SCH ×5 (02:31→19:39)
[2018-11-12] MEDS: VANCOMYCIN 50 MG/ML 60 ML/BOTTLE PO SCH ×4 (02:59→21:03)
[2018-11-12] MEDS: INSULIN REGULAR 100 UNIT/ML SUBCUT SCH ×3 (06:36→17:36)
[2018-11-12] MEDS: MULTIVITAMIN LIQUID (CENTRUM) 60 ML BOTTLE PEG SCH (08:53)
[2018-11-12] MEDS: LACTOBACILLUS ACIDOPHILUS/BULGARICUS CAPLET PEG SCH (08:56)
[2018-11-12] MEDS: SERTRALINE 50 MG TABLET PEG SCH (08:56)
[2018-11-12] MEDS: LOSARTAN 25 MG TABLET PEG SCH (08:58)
[2018-11-12] MEDS: METOPROLOL TARTRATE 50 MG TABLET PEG SCH ×2 (08:58→21:02)
[2018-11-12] MEDS: predniSONE 20 MG TABLET PO SCH (08:59)
[2018-11-12] MEDS: PANTOPRAZOLE 40 MG TABLET PO SCH (09:00)
[2018-11-12] MEDS: amLODIPine 5 MG TABLET PEG SCH (09:00)
[2018-11-12] MEDS: ALLOPURINOL 100 MG TABLET PEG SCH (09:00)
[2018-11-12] MEDS: ASPIRIN 325 MG TABLET PEG SCH (09:01)
[2018-11-12] MEDS: DIPYRIDAMOLE 25 MG TABLET PEG SCH ×2 (09:02→21:02)
[2018-11-12] MEDS: POTASSIUM PHOS/SOD PHOS POWDER 250 MG PACK PEG SCH ×3 (09:03→21:02)
[2018-11-12] MEDS: BUDESONIDE/FORMOTEROL 80-4.5 INHALER 6.9 GM INH SCH ×2 (09:09→21:03)
[2018-11-12] MEDS: DESITIN 4OZ/NYSTATIN 15 GRAM MIXTURE PASTE TOP SCH ×2 (09:10→21:02)
[2018-11-12] MEDS: cloNIDine 0.1 MG TABLET PEG SCH (21:02)
[2018-11-13] MEDS: INSULIN REGULAR 100 UNIT/ML SUBCUT SCH ×4 (00:05→17:15)
[2018-11-13] MEDS: ALBUTEROL/IPRATROPIUM 3 ML NEB RESP TX SCH ×6 (00:50→20:12)
[2018-11-13] MEDS: VANCOMYCIN 50 MG/ML 60 ML/BOTTLE PO SCH ×4 (02:55→20:48)
[2018-11-13] MEDS: MULTIVITAMIN LIQUID (CENTRUM) 60 ML BOTTLE PEG SCH (09:48)
[2018-11-13] MEDS: POTASSIUM PHOS/SOD PHOS POWDER 250 MG PACK PEG SCH ×3 (09:51→20:47)
[2018-11-13] MEDS: ASPIRIN 325 MG TABLET PEG SCH (09:52)
[2018-11-13] MEDS: SERTRALINE 50 MG TABLET PEG SCH (09:52)
[2018-11-13] MEDS: LOSARTAN 25 MG TABLET PEG SCH (09:53)
[2018-11-13] MEDS: LACTOBACILLUS ACIDOPHILUS/BULGARICUS CAPLET PEG SCH (09:54)
[2018-11-13] MEDS: METOPROLOL TARTRATE 50 MG TABLET PEG SCH ×2 (09:54→20:48)
[2018-11-13] MEDS: ALLOPURINOL 100 MG TABLET PEG SCH (09:55)
[2018-11-13] MEDS: DIPYRIDAMOLE 25 MG TABLET PEG SCH ×2 (09:55→20:48)
[2018-11-13] MEDS: predniSONE 20 MG TABLET PO SCH (09:56)
[2018-11-13] MEDS: PANTOPRAZOLE 40 MG TABLET PO SCH (09:57)
[2018-11-13] MEDS: amLODIPine 5 MG TABLET PEG SCH (09:57)
[2018-11-13] MEDS: DESITIN 4OZ/NYSTATIN 15 GRAM MIXTURE PASTE TOP SCH ×2 (10:00→20:49)
[2018-11-13] MEDS: BUDESONIDE/FORMOTEROL 80-4.5 INHALER 6.9 GM INH SCH ×2 (10:01→20:48)
[2018-11-13 11:31] LABS: Basophils # 0.1 10*3/uL (0.0-0.2); Basophils % 0.4 % (0.0-0.8); Eosinophils # 1.3 10*3/uL (0.0-0.87); Eosinophils % 8.1 % (0.00-10.9); Hematocrit 33.2 VOL% (42.0-52.0); Hemoglobin 10.1 GM/DL (14.0-18.0); Immature Granulocytes % 0.6 %; Immature Granulocytes Absolute 0.09 #; Lymphocytes # 1.5 10*3/uL (1.4-4.0); Lymphocytes % 9.4 % (21.2-54.2); Mean Corpuscular HGB Conc 30.4 GM/DL (32-36); Mean Corpuscular Hemoglobin 27 PG (27-34); Mean Corpuscular Volume 88.1 FL (87-102); Mean Platelet Volume 10.4 FL (9.6-12.0); Monocytes # 0.6 10*3/uL (0.11-0.8); Monocytes % 3.7 % (1.7-12.7); Neutrophils # 12.2 10*3/uL (1.4-7.4); Neutrophils % 77.8 % (38.7-73.9); Platelet Count 247 T/CUMM (130-400); Red Blood Count 3.77 MC/CUMM (3.8-5.5); White Blood Count 15.7 T/CUMM (4-12)
[2018-11-13 11:33] LABS: Calcium 8.8 MG/DL (8.5-10.1); Osmolality,Calculated 290.3 MOS/KG (273-304); Potassium 3.7 MMOL/L (3.5-5.1)
[2018-11-13] MEDS: cloNIDine 0.1 MG TABLET PEG SCH (20:15)
[2018-11-14] MEDS: ALBUTEROL/IPRATROPIUM 3 ML NEB RESP TX SCH ×4 (00:14→10:42)
[2018-11-14] MEDS: INSULIN REGULAR 100 UNIT/ML SUBCUT SCH ×3 (01:14→13:14)
[2018-11-14] MEDS: VANCOMYCIN 50 MG/ML 60 ML/BOTTLE PO SCH ×2 (02:22→08:51)
[2018-11-14 05:33] LABS: Potassium 3.5 MMOL/L (3.5-5.1); Prealbumin 16.5 MG/DL (20-40)
[2018-11-14] MEDS: POTASSIUM CHLORIDE 20 MEQ/15 ML UDCUP PEG SCH (08:40)
[2018-11-14] MEDS: LOSARTAN 25 MG TABLET PEG SCH (08:41)
[2018-11-14] MEDS: SERTRALINE 50 MG TABLET PEG SCH (08:41)
[2018-11-14] MEDS: PANTOPRAZOLE 40 MG TABLET PO SCH (08:41)
[2018-11-14] MEDS: POTASSIUM PHOS/SOD PHOS POWDER 250 MG PACK PEG SCH (08:41)
[2018-11-14] MEDS: ASPIRIN 325 MG TABLET PEG SCH (08:41)
[2018-11-14] MEDS: ALLOPURINOL 100 MG TABLET PEG SCH (08:41)
[2018-11-14] MEDS: amLODIPine 5 MG TABLET PEG SCH (08:41)
[2018-11-14] MEDS: DIPYRIDAMOLE 25 MG TABLET PEG SCH (08:41)
[2018-11-14] MEDS: LACTOBACILLUS ACIDOPHILUS/BULGARICUS CAPLET PEG SCH (08:41)
[2018-11-14] MEDS: predniSONE 20 MG TABLET PO SCH (08:42)
[2018-11-14] MEDS: DESITIN 4OZ/NYSTATIN 15 GRAM MIXTURE PASTE TOP SCH (08:42)
[2018-11-14] MEDS: BUDESONIDE/FORMOTEROL 80-4.5 INHALER 6.9 GM INH SCH (08:51)
[2018-11-14] MEDS: MULTIVITAMIN LIQUID (CENTRUM) 60 ML BOTTLE PEG SCH (08:51)
[2018-11-14] MEDS: METOPROLOL TARTRATE 50 MG TABLET PEG SCH (08:51)
[2018-11-14 11:48] VITALS: BP 112/74
== END 2018-11-14 13:20 | DRG 474 ==
LOC: EDBD → EDUNIT# → N.ED 09:05 → N.EDINP 13:30 → N.3E 18:35
PROVIDERS: ADMIT Surgery; ATTEND Surgery

== ENCOUNTER 2019-03-31 01:40 | Inpatient (IN) ==
[2019-03-31 02:31] LABS: Hemoglobin 13.4 GM/DL (14.0-18.0); Red Blood Count 4.86 MC/CUMM (3.8-5.5); White Blood Count 9.6 T/CUMM (4-12)
[2019-03-31 02:32] LABS: Basophils % 0.4 % (0.0-0.8); Eosinophils # 0.3 10*3/uL (0.0-0.87); Eosinophils % 2.8 % (0.00-10.9); Hematocrit 42.6 VOL% (42.0-52.0); Immature Granulocytes % 0.4 %; Immature Granulocytes Absolute 0.04 #; Lymphocytes # 3.2 10*3/uL (1.4-4.0); Lymphocytes % 33.7 % (21.2-54.2); Mean Corpuscular HGB Conc 31.5 GM/DL (32-36); Mean Corpuscular Volume 87.7 FL (87-102); Neutrophils % 55.7 % (38.7-73.9); Platelet Count 185 T/CUMM (130-400); Red Cell Distribution Width 15.9 % (9.3-17.3)
[2019-03-31 03:09] LABS: Alanine Aminotransferase 34 U/L (16-61); Albumin 2.8 G/DL (3.4-5.0); Alkaline Phosphatase 124 U/L (45-117); Aspartate Amino Transferase 24 U/L (0-37); Bilirubin,Total < 0.39 MG/DL (0.2-1.0); Blood Urea Nitrogen 26 MG/DL (7-18); Calcium 9.5 MG/DL (8.5-10.1); Glucose 80 MG/DL (74-106); Osmolality,Calculated 284.3 MOS/KG (273-304); Total Protein 8.8 G/DL (6.4-8.3)
[2019-03-31] MEDS ORDERED: methylPREDNISolone SOD SUC 125 MG/2 ML VIAL IV STA (03:48)
[2019-03-31] MEDS ORDERED: CLINDAMYCIN INJ 600 MG in PREMIX 1 EACH IV STA (03:49)
[2019-03-31] MEDS ORDERED: DOCUSATE SODIUM 100 MG CAPSULE PO PRN (04:09)
[2019-03-31] MEDS ORDERED: ACETAMINOPHEN 325 MG TABLET PO PRN (04:09)
[2019-03-31] MEDS ORDERED: ONDANSETRON 4 MG/2 ML VIAL IV PRN (04:09)
[2019-03-31] MEDS ORDERED: GLUCAGON 1 MG VIAL IM PRN (04:27)
[2019-03-31] MEDS ORDERED: DEXTROSE 50% 25 GM/50 ML VIAL IV PRN (04:27)
[2019-03-31] MEDS ORDERED: cefTRIAXone 1,000 MG in SYRINGE 1 EACH IV SCH (04:30)
[2019-03-31] MEDS ORDERED: ALBUTEROL/IPRATROPIUM 3 ML NEB RESP TX PRN (04:33)
[2019-03-31 04:46] LABS: Amorphous Crystals,Urine Occasional /HPF (Few); Apearance,Urine CLEAR (Clear); Bacteria,Urine Occasional /HPF (Few); Bilirubin,Urine Negative (Negative); Blood, Urine Negative (Negative); Glucose,Urine (UA) Negative (Negative); Hyaline Casts,Urine 1 /LPF (0-3); Ketones,Urine Negative (Negative); Mucus,Urine Occasional /LPF (Occasional); Nitrite,Urine Negative (Negative); Protein,Urine Negative; RBC,Urine 2 /HPF (0-4); Squamous Epithelial Cell,Urine Occasional /HPF (0-10); Urine Color Yellow (Yellow); Urine Specific Gravity 1.019 (1.001-1.035); WBC,Urine 2 /HPF (0-6)
[2019-03-31] MEDS: SODIUM CHLORIDE 0.9% 1,000 ML IV SCH (05:35)
[2019-03-31] MEDS: ENOXAPARIN 40 MG/0.4 ML SYRINGE SUBCUT SCH (05:37)
[2019-03-31 06:35] LABS: Risk Ratio 2.63; Thyroid Stimulating Hormone 0.667 uIU/ml (0.358-3.74)
[2019-03-31] MEDS: ALBUTEROL/IPRATROPIUM 3 ML NEB RESP TX SCH ×5 (07:35→23:46)
[2019-03-31] MEDS ORDERED: predniSONE 10 MG TABLET PO SCH (09:00)
[2019-03-31] MEDS: ALLOPURINOL 100 MG TABLET PEG SCH (09:52)
[2019-03-31] MEDS: ASPIRIN 325 MG TABLET PEG SCH (09:53)
[2019-03-31] MEDS: METOPROLOL TARTRATE 100 MG TABLET PEG SCH ×2 (09:53→16:55)
[2019-03-31] MEDS: SERTRALINE 25 MG TABLET PEG SCH (09:53)
[2019-03-31] MEDS: amLODIPine 10 MG TABLET PEG SCH (09:53)
[2019-03-31] MEDS: PANTOPRAZOLE 40 MG TABLET PO SCH (09:53)
[2019-03-31] MEDS: LOSARTAN 25 MG TABLET PEG SCH (09:53)
[2019-03-31] MEDS: INSULIN LISPRO 100 UNIT/ML SUBCUT SCH ×4 (09:59→22:03)
[2019-03-31] MEDS: BUDESONIDE/FORMOTEROL 80-4.5 INHALER 6.9 GM INH SCH ×2 (09:59→16:54)
[2019-03-31] MEDS: PIPERACILLIN/TAZOBACTAM 3,375 MG in SODIUM CHLORIDE 0.9% 100 ML IV SCH ×2 (12:51→20:14)
[2019-03-31] MEDS ORDERED: cloNIDine 0.1 MG TABLET PEG SCH (21:00)
[2019-04-01] MEDS: ALBUTEROL/IPRATROPIUM 3 ML NEB RESP TX SCH ×6 (02:58→23:35)
[2019-04-01] MEDS: SODIUM CHLORIDE 0.9% 1,000 ML IV SCH (03:29)
[2019-04-01] MEDS: PIPERACILLIN/TAZOBACTAM 3,375 MG in SODIUM CHLORIDE 0.9% 100 ML IV SCH ×2 (03:31→12:00)
[2019-04-01] MEDS ORDERED: AZITHROMYCIN INJ 500 MG in SODIUM CHLORIDE 0.9% 250 ML IV SCH (05:00)
[2019-04-01 05:12] LABS: Basophils % 0.1 % (0.0-0.8); Eosinophils % 0.1 % (0.00-10.9); Hematocrit 38.6 VOL% (42.0-52.0); Hemoglobin 12.1 GM/DL (14.0-18.0); Immature Granulocytes % 0.4 %; Immature Granulocytes Absolute 0.04 #; Lymphocytes # 2.1 10*3/uL (1.4-4.0); Lymphocytes % 21.2 % (21.2-54.2); Mean Corpuscular HGB Conc 31.3 GM/DL (32-36); Mean Corpuscular Volume 87.3 FL (87-102); Mean Platelet Volume 10.4 FL (9.6-12.0); Monocytes % 8.8 % (1.7-12.7); Neutrophils % 69.4 % (38.7-73.9); Platelet Count 171 T/CUMM (130-400); Red Blood Count 4.42 MC/CUMM (3.8-5.5); Red Cell Distribution Width 15.7 % (9.3-17.3); White Blood Count 10.1 T/CUMM (4-12)
[2019-04-01] MEDS: ENOXAPARIN 40 MG/0.4 ML SYRINGE SUBCUT SCH (05:45)
[2019-04-01 05:52] LABS: Calcium 9.2 MG/DL (8.5-10.1); Osmolality,Calculated 289.7 MOS/KG (273-304)
[2019-04-01] MEDS: INSULIN LISPRO 100 UNIT/ML SUBCUT SCH ×4 (07:21→21:43)
[2019-04-01] MEDS: METOPROLOL TARTRATE 100 MG TABLET PEG SCH ×2 (08:40→15:59)
[2019-04-01] MEDS: LOSARTAN 25 MG TABLET PEG SCH (08:41)
[2019-04-01] MEDS: amLODIPine 10 MG TABLET PEG SCH (08:41)
[2019-04-01] MEDS: PANTOPRAZOLE 40 MG TABLET PO SCH (09:13)
[2019-04-01] MEDS: ALLOPURINOL 100 MG TABLET PEG SCH (09:13)
[2019-04-01] MEDS: SERTRALINE 25 MG TABLET PEG SCH (09:13)
[2019-04-01] MEDS: ASPIRIN 325 MG TABLET PEG SCH (09:13)
[2019-04-01] MEDS: BUDESONIDE/FORMOTEROL 80-4.5 INHALER 6.9 GM INH SCH ×2 (09:14→16:55)
[2019-04-02] MEDS: ALBUTEROL/IPRATROPIUM 3 ML NEB RESP TX SCH ×5 (02:20→19:30)
[2019-04-02] MEDS: ENOXAPARIN 40 MG/0.4 ML SYRINGE SUBCUT SCH (05:42)
[2019-04-02 06:07] LABS: Basophils # 0.1 10*3/uL (0.0-0.2); Basophils % 0.8 % (0.0-0.8); Eosinophils # 0.2 10*3/uL (0.0-0.87); Eosinophils % 2.7 % (0.00-10.9); Hematocrit 39.2 VOL% (42.0-52.0); Hemoglobin 12.4 GM/DL (14.0-18.0); Immature Granulocytes % 0.3 %; Immature Granulocytes Absolute 0.02 #; Lymphocytes # 2.7 10*3/uL (1.4-4.0); Lymphocytes % 34.6 % (21.2-54.2); Mean Corpuscular HGB Conc 31.6 GM/DL (32-36); Mean Corpuscular Volume 87.5 FL (87-102); Mean Platelet Volume 10.6 FL (9.6-12.0); Monocytes % 6.3 % (1.7-12.7); Neutrophils % 55.3 % (38.7-73.9); Platelet Count 176 T/CUMM (130-400); Red Blood Count 4.48 MC/CUMM (3.8-5.5); Red Cell Distribution Width 16.1 % (9.3-17.3); White Blood Count 7.8 T/CUMM (4-12)
[2019-04-02 06:41] LABS: Calcium 9.2 MG/DL (8.5-10.1); Osmolality,Calculated 288.7 MOS/KG (273-304)
[2019-04-02] MEDS: INSULIN LISPRO 100 UNIT/ML SUBCUT SCH ×4 (08:14→20:55)
[2019-04-02] MEDS: SERTRALINE 25 MG TABLET PEG SCH (08:16)
[2019-04-02] MEDS: ASPIRIN 325 MG TABLET PEG SCH (08:16)
[2019-04-02] MEDS: PANTOPRAZOLE 40 MG TABLET PO SCH (08:16)
[2019-04-02] MEDS: METOPROLOL TARTRATE 100 MG TABLET PEG SCH ×2 (08:16→17:34)
[2019-04-02] MEDS: ALLOPURINOL 100 MG TABLET PEG SCH (08:16)
[2019-04-02] MEDS: LOSARTAN 25 MG TABLET PEG SCH (08:16)
[2019-04-02] MEDS: POLYETHYLENE GLYCOL POWDER 17 GM PACK PEG SCH (17:34)
[2019-04-02] MEDS: SULFAMETH/TRIMETH INJ 120 MG in DEXTROSE 5% 250 ML IV SCH (20:49)
[2019-04-03] MEDS: ALBUTEROL/IPRATROPIUM 3 ML NEB RESP TX SCH ×7 (00:12→23:36)
[2019-04-03] MEDS: SULFAMETH/TRIMETH INJ 120 MG in DEXTROSE 5% 250 ML IV SCH ×4 (02:10→20:50)
[2019-04-03] MEDS: ENOXAPARIN 40 MG/0.4 ML SYRINGE SUBCUT SCH (04:39)
[2019-04-03 05:00] LABS: Basophils % 0.6 % (0.0-0.8); Eosinophils # 0.3 10*3/uL (0.0-0.87); Eosinophils % 4.5 % (0.00-10.9); Hematocrit 40.8 VOL% (42.0-52.0); Hemoglobin 13.1 GM/DL (14.0-18.0); Immature Granulocytes % 0.1 %; Immature Granulocytes Absolute 0.01 #; Lymphocytes # 3.1 10*3/uL (1.4-4.0); Lymphocytes % 44.7 % (21.2-54.2); Mean Corpuscular HGB Conc 32.1 GM/DL (32-36); Mean Corpuscular Volume 86.8 FL (87-102); Mean Platelet Volume 11.2 FL (9.6-12.0); Monocytes % 6.1 % (1.7-12.7); Platelet Count 187 T/CUMM (130-400); Red Cell Distribution Width 15.9 % (9.3-17.3); White Blood Count 6.8 T/CUMM (4-12)
[2019-04-03 05:26] LABS: Calcium 9.3 MG/DL (8.5-10.1); Osmolality,Calculated 286.8 MOS/KG (273-304)
[2019-04-03] MEDS: INSULIN LISPRO 100 UNIT/ML SUBCUT SCH ×4 (07:38→20:51)
[2019-04-03] MEDS: SERTRALINE 25 MG TABLET PEG SCH (08:26)
[2019-04-03] MEDS: ASPIRIN 325 MG TABLET PEG SCH (08:26)
[2019-04-03] MEDS: LOSARTAN 25 MG TABLET PEG SCH (08:27)
[2019-04-03] MEDS: ALLOPURINOL 100 MG TABLET PEG SCH (08:27)
[2019-04-03] MEDS: POLYETHYLENE GLYCOL POWDER 17 GM PACK PEG SCH (08:27)
[2019-04-03] MEDS: METOPROLOL TARTRATE 100 MG TABLET PEG SCH ×2 (08:27→16:20)
[2019-04-03] MEDS: PANTOPRAZOLE 40 MG TABLET PO SCH (08:27)
[2019-04-03] MEDS ORDERED: POTASSIUM CHLORIDE 20 MEQ/15 ML UDCUP PER TUBE ONE (09:10)
[2019-04-04] MEDS: ALBUTEROL/IPRATROPIUM 3 ML NEB RESP TX SCH ×5 (02:37→19:57)
[2019-04-04] MEDS: SULFAMETH/TRIMETH INJ 120 MG in DEXTROSE 5% 250 ML IV SCH ×2 (03:09→08:12)
[2019-04-04] MEDS: ENOXAPARIN 40 MG/0.4 ML SYRINGE SUBCUT SCH (06:37)
[2019-04-04 06:47] LABS: Calcium 9.3 MG/DL (8.5-10.1); Osmolality,Calculated 292.6 MOS/KG (273-304); Prealbumin 21.5 MG/DL (20-40)
[2019-04-04] MEDS: INSULIN LISPRO 100 UNIT/ML SUBCUT SCH ×4 (08:07→22:20)
[2019-04-04] MEDS: METOPROLOL TARTRATE 100 MG TABLET PEG SCH ×2 (08:16→17:38)
[2019-04-04] MEDS: PANTOPRAZOLE 40 MG TABLET PO SCH (08:16)
[2019-04-04] MEDS: SERTRALINE 25 MG TABLET PEG SCH (08:16)
[2019-04-04] MEDS: POLYETHYLENE GLYCOL POWDER 17 GM PACK PEG SCH (08:16)
[2019-04-04] MEDS: ASPIRIN 325 MG TABLET PEG SCH (08:16)
[2019-04-04] MEDS: ALLOPURINOL 100 MG TABLET PEG SCH (08:16)
[2019-04-04] MEDS: LOSARTAN 25 MG TABLET PEG SCH (08:16)
[2019-04-04] MEDS: LEVOFLOXACIN INJ 500 MG in PREMIX 1 EACH IV SCH (13:10)
[2019-04-05] MEDS: ALBUTEROL/IPRATROPIUM 3 ML NEB RESP TX SCH ×3 (00:16→08:15)
[2019-04-05] MEDS: ENOXAPARIN 40 MG/0.4 ML SYRINGE SUBCUT SCH (05:44)
[2019-04-05] MEDS: INSULIN LISPRO 100 UNIT/ML SUBCUT SCH ×2 (08:17→11:51)
[2019-04-05] MEDS: ASPIRIN 325 MG TABLET PEG SCH (10:02)
[2019-04-05] MEDS: SERTRALINE 25 MG TABLET PEG SCH (10:03)
[2019-04-05] MEDS: LOSARTAN 25 MG TABLET PEG SCH (10:03)
[2019-04-05] MEDS: PANTOPRAZOLE 40 MG TABLET PO SCH (10:03)
[2019-04-05] MEDS: ALLOPURINOL 100 MG TABLET PEG SCH (10:03)
[2019-04-05] MEDS: METOPROLOL TARTRATE 100 MG TABLET PEG SCH (10:03)
[2019-04-05] MEDS: POLYETHYLENE GLYCOL POWDER 17 GM PACK PEG SCH (10:03)
[2019-04-05 12:35] VITALS: BP 113/74
[2019-04-05] MEDS: LEVOFLOXACIN INJ 500 MG in PREMIX 1 EACH IV SCH (12:43)
== END 2019-04-05 12:58 | disposition home or self-care (01) | DRG 177 ==
LOC: EDUNIT# → EDBD → N.ED 01:40 → N.EDINP 04:10 → SUATTDRO 04:10 → N.5E 04:53
PROVIDERS: ADMIT Internal Medicine; ATTEND Hospitalist

== ENCOUNTER 2021-06-27 10:40 | Inpatient (IN) ==
[2021-06-27 11:30] LABS: Basophils % 0.2 % (0.0-0.8); Hematocrit 42.5 VOL% (42.0-52.0); Hemoglobin 13.7 GM/DL (14.0-18.0); Immature Granulocytes % 1.1 %; Immature Granulocytes Absolute 0.24 #; Lymphocytes # 1.6 10*3/uL (1.4-4.0); Lymphocytes % 7.4 % (21.2-54.2); Mean Corpuscular HGB Conc 32.2 GM/DL (32-36); Mean Corpuscular Volume 87.4 FL (87-102); Mean Platelet Volume 10.4 FL (9.6-12.0); Neutrophils % 88.3 % (38.7-73.9); Platelet Count 156 T/CUMM (130-400); Red Blood Count 4.86 MC/CUMM (3.8-5.5); Red Cell Distribution Width 15.6 % (9.3-17.3); White Blood Count 21.1 T/CUMM (4-12)
[2021-06-27 11:55] LABS: Band Neutrophils 12 % (0-10); Lymphocytes 9 % (20-55); Macrocytosis 1+; Platelet Estimate Normal; Segmented Neutrophils 72 % (50-85); Total Cells Counted 100
[2021-06-27 12:10] LABS: Albumin 2.6 G/DL (3.4-5.0); Bilirubin,Total 0.7 MG/DL (0.20-1.00); Calcium 8.7 MG/DL (8.5-10.1); Osmolality,Calculated 297.7 MOS/KG (273-304); Potassium 3.9 MMOL/L (3.5-5.1); Total Protein 7.6 G/DL (6.4-8.2)
[2021-06-27 12:58] LABS: Bilirubin,Urine Negative (Negative); Blood, Urine Negative (Negative); Glucose,Urine (UA) Negative (Negative); Ketones,Urine 5 mg/dL (Negative); Mucus,Urine Moderate /LPF (Occasional); Nitrite,Urine Negative (Negative); Protein,Urine 30 MG/DL; RBC,Urine 3 /HPF (0-4); Urine Appearance CLEAR (Clear); Urine Color Amber (Yellow); Urine Specific Gravity 1.032 (1.001-1.035)
[2021-06-27] MEDS ORDERED: cefTRIAXone 1,000 MG in SODIUM CHLORIDE 0.9% 100 ML IV STA (13:31)
[2021-06-27 15:16] LABS: ABG Oxygen Saturation 90.6 % (95-100); ABG PCO2 35.6 MM HG (35-48); ABG PH 7.461 (7.35-7.45); ABG PO2 56.7 MM HG (80-95); ABG TCO2 21.9 MMOL/L (23-27)
[2021-06-27] MEDS: PIPERACILLIN/TAZOBACTAM 3,375 MG in SODIUM CHLORIDE 0.9% 100 ML IV SCH ×2 (15:44→22:04)
[2021-06-27] MEDS ORDERED: hydrALAZINE 20 MG/1 ML VIAL IV PRN (16:26)
[2021-06-27] MEDS ORDERED: ONDANSETRON 4 MG/2 ML VIAL IV PRN (16:26)
[2021-06-27] MEDS ORDERED: DEXTROSE 50% 25 GM/50 ML VIAL IV PRN (16:26)
[2021-06-27] MEDS ORDERED: GLUCAGON 1 MG VIAL IM PRN (16:26)
[2021-06-27] MEDS ORDERED: ALBUTEROL 0.63 MG/3 ML NEB RESP TX PRN (16:37)
[2021-06-27] MEDS: ENOXAPARIN 40 MG/0.4 ML SYRINGE SUBCUT SCH (17:00)
[2021-06-27] MEDS: SODIUM CHLORIDE 0.9% 1,000 ML IV SCH (17:07)
[2021-06-27] MEDS: POTASSIUM CHLORIDE 20 MEQ PACK PEG SCH (17:28)
[2021-06-27] MEDS: INSULIN REGULAR 100 UNIT/ML SUBCUT SCH ×2 (18:43→23:44)
[2021-06-27] MEDS: ALBUTEROL 2.5 MG/3 ML NEB RESP TX SCH (20:10)
[2021-06-27] MEDS: METOPROLOL TARTRATE 100 MG TABLET PEG SCH (20:35)
[2021-06-27] MEDS: cloNIDine 0.1 MG TABLET PEG SCH (20:35)
[2021-06-27] MEDS: guaiFENesin 200 MG/10 ML UDCUP PEG SCH (20:36)
[2021-06-28] MEDS: ALBUTEROL 2.5 MG/3 ML NEB RESP TX SCH ×4 (00:45→18:10)
[2021-06-28 05:11] LABS: Basophils % 0.1 % (0.0-0.8); Hematocrit 38.8 VOL% (42.0-52.0); Hemoglobin 12.5 GM/DL (14.0-18.0); Immature Granulocytes % 1.1 %; Immature Granulocytes Absolute 0.23 #; Lymphocytes # 1.8 10*3/uL (1.4-4.0); Lymphocytes % 8.6 % (21.2-54.2); Mean Corpuscular HGB Conc 32.2 GM/DL (32-36); Mean Platelet Volume 11.1 FL (9.6-12.0); Monocytes % 4.5 % (1.7-12.7); Neutrophils % 85.7 % (38.7-73.9); Platelet Count 160 T/CUMM (130-400); Red Blood Count 4.41 MC/CUMM (3.8-5.5); Red Cell Distribution Width 15.5 % (9.3-17.3); White Blood Count 20.5 T/CUMM (4-12)
[2021-06-28 05:36] LABS: Calcium 8.9 MG/DL (8.5-10.1); Osmolality,Calculated 296.4 MOS/KG (273-304); Potassium 3.7 MMOL/L (3.5-5.1); Risk Ratio 3.19
[2021-06-28 05:37] LABS: Hypochromasia Slight; Lymphocytes 7 % (20-55); Microcytosis Slight; Platelet Estimate Adequate; Segmented Neutrophils 88 % (50-85); Total Cells Counted 100
[2021-06-28] MEDS: INSULIN REGULAR 100 UNIT/ML SUBCUT SCH ×3 (06:57→17:45)
[2021-06-28] MEDS: PIPERACILLIN/TAZOBACTAM 3,375 MG in SODIUM CHLORIDE 0.9% 100 ML IV SCH ×3 (07:54→22:58)
[2021-06-28] MEDS: guaiFENesin 200 MG/10 ML UDCUP PEG SCH ×2 (09:24→20:41)
[2021-06-28] MEDS: CLOPIDOGREL 75 MG TABLET PEG SCH (09:25)
[2021-06-28] MEDS: ACETAMINOPHEN 325 MG TABLET PO PRN ×2 (09:25→20:41)
[2021-06-28] MEDS: SERTRALINE 100 MG TABLET PEG SCH (09:25)
[2021-06-28] MEDS: POLYETHYLENE GLYCOL POWDER 17 GM PACK PEG SCH (09:25)
[2021-06-28] MEDS: amLODIPine 10 MG TABLET PEG SCH (09:25)
[2021-06-28] MEDS: LOSARTAN 25 MG TABLET PEG SCH (09:25)
[2021-06-28] MEDS: METOPROLOL TARTRATE 100 MG TABLET PEG SCH ×2 (09:28→20:41)
[2021-06-28] MEDS: PANTOPRAZOLE 40 MG TABLET PO SCH (09:29)
[2021-06-28] MEDS: MULTIVITAMIN LIQUID (CENTRUM) 60 ML BOTTLE PEG SCH (09:29)
[2021-06-28 09:32] LABS: Folate 19.68 NG/ML (5.38-24.0)
[2021-06-28 11:34] LABS: % Iron Saturation 8.1 % (18-50); Ferritin 193.7 ng/mL (26-388)
[2021-06-28] MEDS: SODIUM CHLORIDE 0.9% 1,000 ML IV SCH (13:45)
[2021-06-28] MEDS: AZITHROMYCIN INJ 500 MG in SODIUM CHLORIDE 0.9% 250 ML IV SCH (13:45)
[2021-06-28 15:13] LABS: ABG Base Excess -0.9 MMOL/L (-2.5-2.5); ABG HCO3 23.4 MMOL/L (20-26); ABG Oxygen Saturation 88.4 % (95-100); ABG PCO2 33.6 MM HG (35-48); ABG PH 7.435 (7.35-7.45); ABG PO2 55.6 MM HG (80-95); ABG TCO2 19.8 MMOL/L (23-27)
[2021-06-28] MEDS ORDERED: FUROSEMIDE 40 MG/4 ML VIAL IV ONE (15:41)
[2021-06-28] MEDS ORDERED: methylPREDNISolone SOD SUC 40 MG/1 ML VIAL IV SCH (16:00)
[2021-06-28] MEDS: ENOXAPARIN 40 MG/0.4 ML SYRINGE SUBCUT SCH (17:45)
[2021-06-28] MEDS ORDERED: MORPHINE 2 MG/1 ML SYRINGE IV ONE (18:03)
[2021-06-28] MEDS ORDERED: VANCOMYCIN INJ 1,000 MG in SODIUM CHLORIDE 0.9% 250 ML IV ONE (18:05)
[2021-06-28 18:09] LABS: ABG Base Excess -0.2 MMOL/L (-2.5-2.5); ABG Oxygen Saturation 89.3 % (95-100); ABG PCO2 31.8 MM HG (35-48); ABG PH 7.461 (7.35-7.45); ABG PO2 55.2 MM HG (80-95); ABG TCO2 19.6 MMOL/L (23-27)
[2021-06-28] MEDS: ACETYLCYSTEINE 20% 800 MG/4 ML VIAL RESP TX SCH (18:10)
[2021-06-28] MEDS: DEXTROSE 5% 1,000 ML IV SCH (19:10)
[2021-06-28] MEDS: cloNIDine 0.1 MG TABLET PEG SCH (20:41)
[2021-06-29] MEDS: INSULIN REGULAR 100 UNIT/ML SUBCUT SCH ×4 (00:24→17:33)
[2021-06-29] MEDS: methylPREDNISolone SOD SUC 40 MG/1 ML VIAL IV SCH ×5 (00:24→23:50)
[2021-06-29] MEDS: ACETYLCYSTEINE 20% 800 MG/4 ML VIAL RESP TX SCH ×4 (01:18→20:40)
[2021-06-29] MEDS: ALBUTEROL 2.5 MG/3 ML NEB RESP TX SCH ×4 (01:18→20:40)
[2021-06-29] MEDS: VANCOMYCIN INJ 1,000 MG in SODIUM CHLORIDE 0.9% 250 ML IV SCH ×2 (05:48→17:34)
[2021-06-29] MEDS: ENOXAPARIN 80 MG/0.8 ML SYRINGE SUBCUT SCH ×2 (06:20→17:34)
[2021-06-29] MEDS: PIPERACILLIN/TAZOBACTAM 3,375 MG in SODIUM CHLORIDE 0.9% 100 ML IV SCH ×3 (07:03→22:57)
[2021-06-29] MEDS: guaiFENesin 200 MG/10 ML UDCUP PEG SCH ×2 (08:07→20:30)
[2021-06-29] MEDS: LOSARTAN 25 MG TABLET PEG SCH (08:08)
[2021-06-29] MEDS: METOPROLOL TARTRATE 100 MG TABLET PEG SCH ×2 (08:08→20:30)
[2021-06-29] MEDS: amLODIPine 10 MG TABLET PEG SCH (08:08)
[2021-06-29] MEDS: SERTRALINE 100 MG TABLET PEG SCH (08:08)
[2021-06-29] MEDS: POLYETHYLENE GLYCOL POWDER 17 GM PACK PEG SCH (08:08)
[2021-06-29] MEDS: ACETAMINOPHEN 325 MG TABLET PO PRN (08:09)
[2021-06-29] MEDS: CLOPIDOGREL 75 MG TABLET PEG SCH (08:09)
[2021-06-29] MEDS: PANTOPRAZOLE 40 MG TABLET PO SCH (08:09)
[2021-06-29 08:54] LABS: Basophils % 0.1 % (0.0-0.8); Hemoglobin 11.9 GM/DL (14.0-18.0); Immature Granulocytes % 0.4 %; Immature Granulocytes Absolute 0.05 #; Lymphocytes # 0.5 10*3/uL (1.4-4.0); Lymphocytes % 3.8 % (21.2-54.2); Mean Corpuscular HGB Conc 33.1 GM/DL (32-36); Mean Platelet Volume 10.5 FL (9.6-12.0); Monocytes % 2.9 % (1.7-12.7); Neutrophils % 92.8 % (38.7-73.9); Platelet Count 143 T/CUMM (130-400); Red Blood Count 4.14 MC/CUMM (3.8-5.5); Red Cell Distribution Width 15.3 % (9.3-17.3); White Blood Count 13.9 T/CUMM (4-12)
[2021-06-29 09:08] LABS: Albumin 2.1 G/DL (3.4-5.0); Bilirubin,Total 0.5 MG/DL (0.20-1.00); Calcium 8.6 MG/DL (8.5-10.1); Osmolality,Calculated 299.6 MOS/KG (273-304); Potassium 2.8 MMOL/L (3.5-5.1); Total Protein 7.6 G/DL (6.4-8.2)
[2021-06-29 09:15] LABS: Lymphocytes 2 % (20-55); Platelet Estimate Adequate; Segmented Neutrophils 97 % (50-85); Total Cells Counted 100
[2021-06-29] MEDS: POTASSIUM BICARB EFFERVESCENT 20 MEQ TAB.EFF PER TUBE PRN ×4 (09:22→15:24)
[2021-06-29] MEDS: MULTIVITAMIN LIQUID (CENTRUM) 60 ML BOTTLE PEG SCH (09:22)
[2021-06-29] MEDS: DEXTROSE 5% 1,000 ML IV SCH (09:57)
[2021-06-29] MEDS: SODIUM CHLORIDE 0.9% 1,000 ML IV SCH (10:00)
[2021-06-29] MEDS: AZITHROMYCIN INJ 500 MG in SODIUM CHLORIDE 0.9% 250 ML IV SCH (11:31)
[2021-06-29] MEDS: (Fluticasone-Umeclidin-Vilanter [Trelegy Ellipta] 100-62.5-25 mcg INH SCH (15:18)
[2021-06-29] MEDS: allopurinoL 100 MG TABLET PEG SCH (15:24)
[2021-06-29] MEDS: cloNIDine 0.1 MG TABLET PEG SCH (20:30)
[2021-06-29] MEDS: NYSTATIN 500,000 UNIT/5 ML UDCUP SWISH/SWAL SCH (20:30)
[2021-06-30] MEDS: INSULIN REGULAR 100 UNIT/ML SUBCUT SCH ×4 (00:11→17:31)
[2021-06-30] MEDS: POTASSIUM BICARB EFFERVESCENT 20 MEQ TAB.EFF PER TUBE PRN (01:11)
[2021-06-30] MEDS: ACETYLCYSTEINE 20% 800 MG/4 ML VIAL RESP TX SCH ×4 (02:25→19:06)
[2021-06-30] MEDS: ALBUTEROL 2.5 MG/3 ML NEB RESP TX SCH ×2 (02:25→09:11)
[2021-06-30] MEDS: SODIUM CHLORIDE 0.9% 1,000 ML IV SCH (03:45)
[2021-06-30 04:17] LABS: ABG Base Excess 3.3 MMOL/L (-2.5-2.5); ABG HCO3 27.2 MMOL/L (20-26); ABG Oxygen Saturation 93.3 % (95-100); ABG PCO2 42.5 MM HG (35-48); ABG PH 7.429 (7.35-7.45); ABG PO2 66.8 MM HG (80-95); ABG TCO2 23.7 MMOL/L (23-27)
[2021-06-30 04:47] LABS: Basophils % 0.1 % (0.0-0.8); Hematocrit 37.2 VOL% (42.0-52.0); Hemoglobin 11.9 GM/DL (14.0-18.0); Immature Granulocytes % 0.6 %; Immature Granulocytes Absolute 0.11 #; Lymphocytes # 0.7 10*3/uL (1.4-4.0); Lymphocytes % 3.6 % (21.2-54.2); Mean Corpuscular Volume 87.1 FL (87-102); Mean Platelet Volume 11.8 FL (9.6-12.0); Monocytes % 3.4 % (1.7-12.7); Neutrophils % 92.3 % (38.7-73.9); Platelet Count 156 T/CUMM (130-400); Red Blood Count 4.27 MC/CUMM (3.8-5.5); Red Cell Distribution Width 15.4 % (9.3-17.3)
[2021-06-30 05:10] LABS: Lymphocytes 1 % (20-55); Platelet Estimate Adequate; Segmented Neutrophils 94 % (50-85); Total Cells Counted 100
[2021-06-30 05:26] LABS: Calcium 8.6 MG/DL (8.5-10.1); Osmolality,Calculated 299.4 MOS/KG (273-304)
[2021-06-30] MEDS: VANCOMYCIN INJ 1,000 MG in SODIUM CHLORIDE 0.9% 250 ML IV SCH (05:33)
[2021-06-30] MEDS: ENOXAPARIN 80 MG/0.8 ML SYRINGE SUBCUT SCH (05:33)
[2021-06-30] MEDS: PIPERACILLIN/TAZOBACTAM 3,375 MG in SODIUM CHLORIDE 0.9% 100 ML IV SCH ×3 (07:45→23:51)
[2021-06-30] MEDS ORDERED: ALBUTEROL 2.5 MG/3 ML NEB RESP TX PRN (08:36)
[2021-06-30] MEDS: guaiFENesin 200 MG/10 ML UDCUP PEG SCH ×2 (08:44→21:11)
[2021-06-30] MEDS: amLODIPine 10 MG TABLET PEG SCH (08:44)
[2021-06-30] MEDS: ACETAMINOPHEN 325 MG TABLET PO PRN (08:44)
[2021-06-30] MEDS: MULTIVITAMIN LIQUID (CENTRUM) 60 ML BOTTLE PEG SCH (08:45)
[2021-06-30] MEDS: NYSTATIN 500,000 UNIT/5 ML UDCUP SWISH/SWAL SCH ×4 (08:45→21:10)
[2021-06-30] MEDS: allopurinoL 100 MG TABLET PEG SCH (08:45)
[2021-06-30] MEDS: METOPROLOL TARTRATE 100 MG TABLET PEG SCH ×2 (08:46→21:10)
[2021-06-30] MEDS: PANTOPRAZOLE 40 MG TABLET PO SCH (08:46)
[2021-06-30] MEDS: LOSARTAN 25 MG TABLET PEG SCH (08:46)
[2021-06-30] MEDS: CLOPIDOGREL 75 MG TABLET PEG SCH (08:46)
[2021-06-30] MEDS: SERTRALINE 100 MG TABLET PEG SCH (08:46)
[2021-06-30] MEDS: methylPREDNISolone SOD SUC 40 MG/1 ML VIAL IV SCH ×3 (08:46→23:52)
[2021-06-30] MEDS: POLYETHYLENE GLYCOL POWDER 17 GM PACK PEG SCH (08:47)
[2021-06-30] MEDS: (Fluticasone-Umeclidin-Vilanter [Trelegy Ellipta] 100-62.5-25 mcg INH SCH (08:50)
[2021-06-30] MEDS: AZITHROMYCIN INJ 500 MG in SODIUM CHLORIDE 0.9% 250 ML IV SCH (12:22)
[2021-06-30] MEDS: ALBUTEROL/IPRATROPIUM 3 ML NEB RESP TX SCH ×2 (13:20→19:06)
[2021-06-30] MEDS: POTASSIUM CHLORIDE 20 MEQ PACK PEG SCH (16:11)
[2021-06-30] MEDS: cloNIDine 0.1 MG TABLET PEG SCH (21:10)
[2021-07-01] MEDS: INSULIN REGULAR 100 UNIT/ML SUBCUT SCH ×4 (00:04→20:10)
[2021-07-01] MEDS: ACETYLCYSTEINE 20% 800 MG/4 ML VIAL RESP TX SCH ×2 (00:30→07:05)
[2021-07-01] MEDS: ALBUTEROL/IPRATROPIUM 3 ML NEB RESP TX SCH ×4 (00:30→19:27)
[2021-07-01 04:39] LABS: Basophils % 0.2 % (0.0-0.8); Hemoglobin 12.1 GM/DL (14.0-18.0); Immature Granulocytes % 1.1 %; Immature Granulocytes Absolute 0.19 #; Lymphocytes # 0.7 10*3/uL (1.4-4.0); Mean Corpuscular HGB Conc 31.8 GM/DL (32-36); Mean Corpuscular Volume 86.8 FL (87-102); Mean Platelet Volume 11.3 FL (9.6-12.0); Monocytes % 3.8 % (1.7-12.7); Neutrophils % 90.9 % (38.7-73.9); Platelet Count 154 T/CUMM (130-400); Red Blood Count 4.38 MC/CUMM (3.8-5.5); Red Cell Distribution Width 15.2 % (9.3-17.3); White Blood Count 17.9 T/CUMM (4-12)
[2021-07-01 04:58] LABS: Calcium 8.7 MG/DL (8.5-10.1); Osmolality,Calculated 292.8 MOS/KG (273-304); Potassium 3.9 MMOL/L (3.5-5.1)
[2021-07-01 05:03] LABS: Hypochromasia Slight; Lymphocytes 2 % (20-55); Microcytosis Slight; Platelet Estimate Adequate; Segmented Neutrophils 93 % (50-85); Total Cells Counted 100
[2021-07-01] MEDS: PIPERACILLIN/TAZOBACTAM 3,375 MG in SODIUM CHLORIDE 0.9% 100 ML IV SCH ×2 (06:24→17:32)
[2021-07-01] MEDS: POLYETHYLENE GLYCOL POWDER 17 GM PACK PEG SCH (08:38)
[2021-07-01] MEDS: NYSTATIN 500,000 UNIT/5 ML UDCUP SWISH/SWAL SCH ×4 (08:54→21:31)
[2021-07-01] MEDS: guaiFENesin 200 MG/10 ML UDCUP PEG SCH ×2 (08:56→21:31)
[2021-07-01] MEDS: SERTRALINE 100 MG TABLET PEG SCH (08:57)
[2021-07-01] MEDS: allopurinoL 100 MG TABLET PEG SCH (08:57)
[2021-07-01] MEDS: PANTOPRAZOLE 40 MG TABLET PO SCH (08:57)
[2021-07-01] MEDS: amLODIPine 10 MG TABLET PEG SCH (08:57)
[2021-07-01] MEDS: METOPROLOL TARTRATE 100 MG TABLET PEG SCH ×2 (08:57→21:31)
[2021-07-01] MEDS: LOSARTAN 25 MG TABLET PEG SCH (08:57)
[2021-07-01] MEDS: CLOPIDOGREL 75 MG TABLET PEG SCH (08:57)
[2021-07-01] MEDS: MULTIVITAMIN LIQUID (CENTRUM) 60 ML BOTTLE PEG SCH (08:58)
[2021-07-01] MEDS: methylPREDNISolone SOD SUC 40 MG/1 ML VIAL IV SCH ×2 (08:58→17:32)
[2021-07-01] MEDS ORDERED: FUROSEMIDE 40 MG/4 ML VIAL IV ONE (09:00)
[2021-07-01] MEDS: (Fluticasone-Umeclidin-Vilanter [Trelegy Ellipta] 100-62.5-25 mcg INH SCH (10:49)
[2021-07-01] MEDS: ENOXAPARIN 40 MG/0.4 ML SYRINGE SUBCUT SCH (10:58)
[2021-07-01] MEDS: AZITHROMYCIN INJ 500 MG in SODIUM CHLORIDE 0.9% 250 ML IV SCH (12:20)
[2021-07-01] MEDS: cloNIDine 0.1 MG TABLET PEG SCH (21:31)
[2021-07-02] MEDS: INSULIN REGULAR 100 UNIT/ML SUBCUT SCH ×4 (00:24→18:32)
[2021-07-02] MEDS: methylPREDNISolone SOD SUC 40 MG/1 ML VIAL IV SCH ×3 (00:28→16:59)
[2021-07-02] MEDS: ALBUTEROL/IPRATROPIUM 3 ML NEB RESP TX SCH ×4 (01:18→19:17)
[2021-07-02 05:25] LABS: Basophils % 0.1 % (0.0-0.8); Hematocrit 40.9 VOL% (42.0-52.0); Hemoglobin 13.4 GM/DL (14.0-18.0); Immature Granulocytes % 0.8 %; Immature Granulocytes Absolute 0.12 #; Lymphocytes # 0.6 10*3/uL (1.4-4.0); Mean Corpuscular HGB Conc 32.8 GM/DL (32-36); Mean Platelet Volume 11.8 FL (9.6-12.0); NRBC # 0.02 10*3/uL; Neutrophils % 93.1 % (38.7-73.9); Platelet Count 164 T/CUMM (130-400); Red Cell Distribution Width 14.8 % (9.3-17.3); White Blood Count 14.3 T/CUMM (4-12)
[2021-07-02 05:51] LABS: Band Neutrophils 1 % (0-10); Hypochromasia 1+; Lymphocytes 5 % (20-55); Segmented Neutrophils 94 % (50-85); Total Cells Counted 100
[2021-07-02 05:52] LABS: Microcytosis Slight; Platelet Estimate Adequate
[2021-07-02 06:03] LABS: Calcium 8.7 MG/DL (8.5-10.1); Osmolality,Calculated 293.7 MOS/KG (273-304)
[2021-07-02] MEDS: PIPERACILLIN/TAZOBACTAM 3,375 MG in SODIUM CHLORIDE 0.9% 100 ML IV SCH ×4 (07:10→23:00)
[2021-07-02] MEDS: NYSTATIN 500,000 UNIT/5 ML UDCUP SWISH/SWAL SCH ×4 (08:34→20:41)
[2021-07-02] MEDS: POLYETHYLENE GLYCOL POWDER 17 GM PACK PEG SCH (08:34)
[2021-07-02] MEDS: METOPROLOL TARTRATE 100 MG TABLET PEG SCH ×2 (08:35→20:40)
[2021-07-02] MEDS: LOSARTAN 25 MG TABLET PEG SCH (08:35)
[2021-07-02] MEDS: allopurinoL 100 MG TABLET PEG SCH (08:35)
[2021-07-02] MEDS: amLODIPine 10 MG TABLET PEG SCH (08:35)
[2021-07-02] MEDS: SERTRALINE 100 MG TABLET PEG SCH (08:35)
[2021-07-02] MEDS: CLOPIDOGREL 75 MG TABLET PEG SCH (08:35)
[2021-07-02] MEDS: guaiFENesin 200 MG/10 ML UDCUP PEG SCH ×2 (08:38→20:41)
[2021-07-02] MEDS: MULTIVITAMIN LIQUID (CENTRUM) 60 ML BOTTLE PEG SCH (08:39)
[2021-07-02] MEDS: (Fluticasone-Umeclidin-Vilanter [Trelegy Ellipta] 100-62.5-25 mcg INH SCH (09:17)
[2021-07-02] MEDS: PANTOPRAZOLE 40 MG TABLET PO SCH (09:18)
[2021-07-02] MEDS: ENOXAPARIN 40 MG/0.4 ML SYRINGE SUBCUT SCH (10:07)
[2021-07-02] MEDS: AZITHROMYCIN INJ 500 MG in SODIUM CHLORIDE 0.9% 250 ML IV SCH (12:23)
[2021-07-02] MEDS: ZINC OXIDE 16% PASTE 57 GM TUBE TOP SCH ×2 (15:23→20:40)
[2021-07-02] MEDS: POTASSIUM CHLORIDE 20 MEQ PACK PEG SCH (16:59)
[2021-07-02] MEDS: cloNIDine 0.1 MG TABLET PEG SCH (20:40)
[2021-07-03] MEDS: methylPREDNISolone SOD SUC 40 MG/1 ML VIAL IV SCH ×2 (01:30→09:15)
[2021-07-03] MEDS: INSULIN REGULAR 100 UNIT/ML SUBCUT SCH ×4 (03:21→19:17)
[2021-07-03] MEDS: ALBUTEROL/IPRATROPIUM 3 ML NEB RESP TX SCH ×4 (05:32→18:53)
[2021-07-03 05:53] LABS: Basophils % 0.1 % (0.0-0.8); Hemoglobin 13.3 GM/DL (14.0-18.0); Immature Granulocytes % 0.9 %; Immature Granulocytes Absolute 0.15 #; Lymphocytes # 0.7 10*3/uL (1.4-4.0); Lymphocytes % 4.2 % (21.2-54.2); Mean Corpuscular HGB Conc 31.7 GM/DL (32-36); Mean Corpuscular Volume 87.3 FL (87-102); Monocytes % 2.6 % (1.7-12.7); Neutrophils % 92.2 % (38.7-73.9); Platelet Count 181 T/CUMM (130-400); Red Blood Count 4.81 MC/CUMM (3.8-5.5); Red Cell Distribution Width 14.9 % (9.3-17.3); White Blood Count 16.3 T/CUMM (4-12)
[2021-07-03 06:18] LABS: Band Neutrophils 2 % (0-10); Lymphocytes 6 % (20-55); Nucleated Red Blood Cells 1 (0-5); Platelet Estimate Normal; Segmented Neutrophils 90 % (50-85); Total Cells Counted 100
[2021-07-03 06:25] LABS: Osmolality,Calculated 292.8 MOS/KG (273-304)
[2021-07-03] MEDS: guaiFENesin 200 MG/10 ML UDCUP PEG SCH ×2 (08:21→21:23)
[2021-07-03] MEDS: allopurinoL 100 MG TABLET PEG SCH (08:21)
[2021-07-03] MEDS: PANTOPRAZOLE 40 MG TABLET PO SCH (08:21)
[2021-07-03] MEDS: PIPERACILLIN/TAZOBACTAM 3,375 MG in SODIUM CHLORIDE 0.9% 100 ML IV SCH ×3 (08:21→23:50)
[2021-07-03] MEDS: CLOPIDOGREL 75 MG TABLET PEG SCH (08:22)
[2021-07-03] MEDS: SERTRALINE 100 MG TABLET PEG SCH (08:22)
[2021-07-03] MEDS: LOSARTAN 25 MG TABLET PEG SCH (08:23)
[2021-07-03] MEDS: METOPROLOL TARTRATE 100 MG TABLET PEG SCH ×2 (08:23→21:22)
[2021-07-03] MEDS: NYSTATIN 500,000 UNIT/5 ML UDCUP SWISH/SWAL SCH ×4 (08:24→21:23)
[2021-07-03] MEDS: MULTIVITAMIN LIQUID (CENTRUM) 60 ML BOTTLE PEG SCH (09:15)
[2021-07-03] MEDS: (Fluticasone-Umeclidin-Vilanter [Trelegy Ellipta] 100-62.5-25 mcg INH SCH (09:15)
[2021-07-03] MEDS: ZINC OXIDE 16% PASTE 57 GM TUBE TOP SCH ×2 (09:15→21:22)
[2021-07-03] MEDS: amLODIPine 10 MG TABLET PEG SCH (09:16)
[2021-07-03] MEDS: POLYETHYLENE GLYCOL POWDER 17 GM PACK PEG SCH (09:16)
[2021-07-03] MEDS: ENOXAPARIN 40 MG/0.4 ML SYRINGE SUBCUT SCH (10:28)
[2021-07-03] MEDS: methylPREDNISolone SOD SUC 125 MG/2 ML VIAL IV SCH ×2 (12:00→23:50)
[2021-07-03] MEDS: AZITHROMYCIN INJ 500 MG in SODIUM CHLORIDE 0.9% 250 ML IV SCH (13:30)
[2021-07-03] MEDS: cloNIDine 0.1 MG TABLET PEG SCH (21:22)
[2021-07-04] MEDS: INSULIN REGULAR 100 UNIT/ML SUBCUT SCH ×4 (00:50→19:00)
[2021-07-04] MEDS: ALBUTEROL/IPRATROPIUM 3 ML NEB RESP TX SCH ×4 (01:00→19:51)
[2021-07-04 06:32] LABS: Basophils # 0.1 10*3/uL (0.0-0.2); Basophils % 0.3 % (0.0-0.8); Hemoglobin 13.8 GM/DL (14.0-18.0); Immature Granulocytes % 0.8 %; Immature Granulocytes Absolute 0.15 #; Lymphocytes # 0.6 10*3/uL (1.4-4.0); Lymphocytes % 3.1 % (21.2-54.2); Mean Corpuscular HGB Conc 32.9 GM/DL (32-36); Mean Corpuscular Volume 87.5 FL (87-102); Mean Platelet Volume 11.7 FL (9.6-12.0); Monocytes % 1.4 % (1.7-12.7); Neutrophils % 94.4 % (38.7-73.9); Platelet Count 184 T/CUMM (130-400); Red Cell Distribution Width 14.9 % (9.3-17.3); White Blood Count 18.4 T/CUMM (4-12)
[2021-07-04] MEDS: PIPERACILLIN/TAZOBACTAM 3,375 MG in SODIUM CHLORIDE 0.9% 100 ML IV SCH ×2 (06:50→16:23)
[2021-07-04 06:53] LABS: Calcium 8.6 MG/DL (8.5-10.1); Osmolality,Calculated 289.3 MOS/KG (273-304); Potassium 4.1 MMOL/L (3.5-5.1)
[2021-07-04 07:03] LABS: Band Neutrophils 1 % (0-10); Lymphocytes 2 % (20-55); Platelet Estimate Normal; Segmented Neutrophils 96 % (50-85); Total Cells Counted 100
[2021-07-04] MEDS: guaiFENesin 200 MG/10 ML UDCUP PEG SCH ×2 (08:06→21:27)
[2021-07-04] MEDS: NYSTATIN 500,000 UNIT/5 ML UDCUP SWISH/SWAL SCH ×4 (08:06→21:26)
[2021-07-04] MEDS: allopurinoL 100 MG TABLET PEG SCH (08:07)
[2021-07-04] MEDS: CLOPIDOGREL 75 MG TABLET PEG SCH (08:07)
[2021-07-04] MEDS: amLODIPine 10 MG TABLET PEG SCH (08:07)
[2021-07-04] MEDS: SERTRALINE 100 MG TABLET PEG SCH (08:07)
[2021-07-04] MEDS: METOPROLOL TARTRATE 100 MG TABLET PEG SCH ×2 (08:07→21:26)
[2021-07-04] MEDS: PANTOPRAZOLE 40 MG TABLET PO SCH (08:07)
[2021-07-04] MEDS: LOSARTAN 25 MG TABLET PEG SCH (08:08)
[2021-07-04] MEDS: POLYETHYLENE GLYCOL POWDER 17 GM PACK PEG SCH (09:05)
[2021-07-04] MEDS: ZINC OXIDE 16% PASTE 57 GM TUBE TOP SCH ×2 (09:09→21:27)
[2021-07-04] MEDS: MULTIVITAMIN LIQUID (CENTRUM) 60 ML BOTTLE PEG SCH (09:09)
[2021-07-04] MEDS: (Fluticasone-Umeclidin-Vilanter [Trelegy Ellipta] 100-62.5-25 mcg INH SCH (09:10)
[2021-07-04] MEDS: ENOXAPARIN 40 MG/0.4 ML SYRINGE SUBCUT SCH (09:51)
[2021-07-04] MEDS: methylPREDNISolone SOD SUC 125 MG/2 ML VIAL IV SCH (13:00)
[2021-07-04] MEDS: AZITHROMYCIN INJ 500 MG in SODIUM CHLORIDE 0.9% 250 ML IV SCH (13:00)
[2021-07-04] MEDS: POTASSIUM CHLORIDE 20 MEQ PACK PEG SCH (18:49)
[2021-07-04] MEDS: cloNIDine 0.1 MG TABLET PEG SCH (21:26)
[2021-07-05] MEDS: ALBUTEROL/IPRATROPIUM 3 ML NEB RESP TX SCH ×3 (00:32→14:05)
[2021-07-05] MEDS: INSULIN REGULAR 100 UNIT/ML SUBCUT SCH ×3 (01:35→11:40)
[2021-07-05] MEDS: PIPERACILLIN/TAZOBACTAM 3,375 MG in SODIUM CHLORIDE 0.9% 100 ML IV SCH (01:35)
[2021-07-05] MEDS: methylPREDNISolone SOD SUC 125 MG/2 ML VIAL IV SCH ×2 (01:35→10:41)
[2021-07-05 05:28] LABS: Basophils % 0.1 % (0.0-0.8); Hematocrit 39.3 VOL% (42.0-52.0); Hemoglobin 12.6 GM/DL (14.0-18.0); Immature Granulocytes % 0.9 %; Immature Granulocytes Absolute 0.17 #; Lymphocytes # 0.6 10*3/uL (1.4-4.0); Lymphocytes % 3.1 % (21.2-54.2); Mean Corpuscular HGB Conc 32.1 GM/DL (32-36); Mean Corpuscular Volume 86.9 FL (87-102); Mean Platelet Volume 11.1 FL (9.6-12.0); Monocytes % 2.6 % (1.7-12.7); Neutrophils % 93.3 % (38.7-73.9); Platelet Count 176 T/CUMM (130-400); Red Blood Count 4.52 MC/CUMM (3.8-5.5); Red Cell Distribution Width 15.2 % (9.3-17.3); White Blood Count 19.1 T/CUMM (4-12)
[2021-07-05 05:58] LABS: Calcium 8.3 MG/DL (8.5-10.1); Hypersegmented Neutrophil Few; Lymphocytes 1 % (20-55); Microcytosis 1+; Osmolality,Calculated 287.4 MOS/KG (273-304); Platelet Estimate Normal; Potassium 4.4 MMOL/L (3.5-5.1); Segmented Neutrophils 99 % (50-85); Total Cells Counted 100
[2021-07-05 05:59] LABS: Hypochromasia Slight; Target Cells Slight
[2021-07-05] MEDS: (Fluticasone-Umeclidin-Vilanter [Trelegy Ellipta] 100-62.5-25 mcg INH SCH (08:53)
[2021-07-05] MEDS: MULTIVITAMIN LIQUID (CENTRUM) 60 ML BOTTLE PEG SCH (08:59)
[2021-07-05] MEDS: ZINC OXIDE 16% PASTE 57 GM TUBE TOP SCH (08:59)
[2021-07-05] MEDS: CLOPIDOGREL 75 MG TABLET PEG SCH (09:00)
[2021-07-05] MEDS: amLODIPine 10 MG TABLET PEG SCH (09:00)
[2021-07-05] MEDS: allopurinoL 100 MG TABLET PEG SCH (09:00)
[2021-07-05] MEDS: PANTOPRAZOLE 40 MG TABLET PO SCH (09:00)
[2021-07-05] MEDS: SERTRALINE 100 MG TABLET PEG SCH (09:00)
[2021-07-05] MEDS: METOPROLOL TARTRATE 100 MG TABLET PEG SCH (09:00)
[2021-07-05] MEDS: guaiFENesin 200 MG/10 ML UDCUP PEG SCH (09:00)
[2021-07-05] MEDS: NYSTATIN 500,000 UNIT/5 ML UDCUP SWISH/SWAL SCH ×2 (09:00→13:06)
[2021-07-05] MEDS: ENOXAPARIN 40 MG/0.4 ML SYRINGE SUBCUT SCH (09:01)
[2021-07-05] MEDS: LOSARTAN 25 MG TABLET PEG SCH (09:01)
[2021-07-05] MEDS: POLYETHYLENE GLYCOL POWDER 17 GM PACK PEG SCH (09:01)
[2021-07-05 11:34] VITALS: BP 124/70
[2021-07-05] MEDS: AZITHROMYCIN INJ 500 MG in SODIUM CHLORIDE 0.9% 250 ML IV SCH (13:06)
== END 2021-07-05 15:29 | DRG 871 ==
LOC: EDBD → EDUNIT# → N.ED 10:40 → N.EDINP 16:26 → SUATTDRO 16:26 → N.TELES 18:23 → N.CC 06-28 18:48 → N.5E 07-04 17:24
PROVIDERS: ADMIT Internal Medicine; ATTEND Phlebology

== ENCOUNTER 2021-08-29 03:02 | Inpatient (IN) ==
[2021-08-29] MEDS ORDERED: ACETAMINOPHEN 500 MG TABLET PO STA ×2 (03:22→03:41)
[2021-08-29] MEDS ORDERED: PIPERACILLIN/TAZOBACTAM 3,375 MG in SODIUM CHLORIDE 0.9% 100 ML IV STA (03:40)
[2021-08-29] MEDS ORDERED: SODIUM CHLORIDE 0.9% 1,000 ML IV STA ×2 (03:40→04:30)
[2021-08-29] MEDS ORDERED: methylPREDNISolone SOD SUC 125 MG/2 ML VIAL IV STA (04:28)
[2021-08-29 04:31] LABS: Basophils % 0.2 % (0.0-0.8); Hematocrit 39.6 VOL% (42.0-52.0); Hemoglobin 12.5 GM/DL (14.0-18.0); Immature Granulocytes % 0.8 %; Immature Granulocytes Absolute 0.18 #; Lymphocytes # 2.3 10*3/uL (1.4-4.0); Lymphocytes % 10.6 % (21.2-54.2); Mean Corpuscular HGB Conc 31.6 GM/DL (32-36); Mean Corpuscular Volume 87.2 FL (87-102); Mean Platelet Volume 11.9 FL (9.6-12.0); Monocytes % 6.9 % (1.7-12.7); NRBC # 0.05 10*3/uL; Neutrophils % 81.5 % (38.7-73.9); Platelet Count 219 T/CUMM (130-400); Red Blood Count 4.54 MC/CUMM (3.8-5.5); Red Cell Distribution Width 16.3 % (9.3-17.3); White Blood Count 21.7 T/CUMM (4-12)
[2021-08-29 04:43] LABS: PT Patient Result 11.6 SECS (10.5-12.0)
[2021-08-29 04:55] LABS: Band Neutrophils 2 % (0-10); Lymphocytes 9 % (20-55); Platelet Estimate Normal; Segmented Neutrophils 86 % (50-85); Total Cells Counted 100
[2021-08-29] MEDS ORDERED: METOPROLOL TARTRATE 5 MG/5 ML VIAL IV STA (05:02)
[2021-08-29 05:36] LABS: Albumin 1.8 G/DL (3.4-5.0); Bilirubin,Total 0.9 MG/DL (0.20-1.00); Calcium 9.6 MG/DL (8.5-10.1); Osmolality,Calculated 306.4 MOS/KG (273-304); Potassium 5.3 MMOL/L (3.5-5.1); Total Protein 9.4 G/DL (6.4-8.2)
[2021-08-29] MEDS ORDERED: ALBUTEROL/IPRATROPIUM 3 ML NEB RESP TX STA ×3 (05:42→05:43)
[2021-08-29] MEDS ORDERED: ONDANSETRON 4 MG/2 ML VIAL IV PRN (05:44)
[2021-08-29] MEDS ORDERED: GLUCAGON 1 MG VIAL IM PRN (05:44)
[2021-08-29] MEDS ORDERED: DEXTROSE 50% 25 GM/50 ML SYRINGE IV PRN (06:16)
[2021-08-29 06:33] LABS: Bacteria,Urine Occasional /HPF (Few); Bilirubin,Urine Negative (Negative); Blood, Urine Negative (Negative); Glucose,Urine (UA) Negative (Negative); Ketones,Urine Negative (Negative); Mucus,Urine Occasional /LPF (Occasional); Nitrite,Urine Negative (Negative); Protein,Urine 100 MG/DL; RBC,Urine 3 /HPF (0-4); Squamous Epithelial Cell,Urine Occasional /HPF (0-10); Urine Appearance CLEAR (Clear); Urine Color Amber (Yellow); Urine Specific Gravity 1.028 (1.001-1.035)
[2021-08-29] MEDS: SODIUM CHLORIDE 0.45% 1,000 ML IV SCH ×2 (06:37→21:31)
[2021-08-29] MEDS: LEVOFLOXACIN INJ 750 MG/150 ML PREMIX IV SCH (06:38)
[2021-08-29] MEDS: ALBUTEROL/IPRATROPIUM 3 ML NEB RESP TX SCH ×3 (07:50→19:42)
[2021-08-29] MEDS: ENOXAPARIN 40 MG/0.4 ML SYRINGE SUBCUT SCH (10:33)
[2021-08-29] MEDS: INSULIN REGULAR 100 UNIT/ML SUBCUT SCH ×4 (10:45→21:31)
[2021-08-29] MEDS ORDERED: DEXTROSE 10% 250 ML BAG IV PRN (11:00)
[2021-08-29] MEDS: PIPERACILLIN/TAZOBACTAM 3,375 MG in SODIUM CHLORIDE 0.9% 100 ML IV SCH ×2 (12:21→21:30)
[2021-08-29 13:32] LABS: ABG Base Excess 1.3 MMOL/L (-2.5-2.5); ABG HCO3 25.5 MMOL/L (20-26); ABG Oxygen Saturation 92.2 % (95-100); ABG PCO2 37.9 MM HG (35-48); ABG PH 7.434 (7.35-7.45); ABG PO2 65.9 MM HG (80-95)
[2021-08-29 16:06] LABS: ABG Base Excess 0.7 MMOL/L (-2.5-2.5); ABG HCO3 25.1 MMOL/L (20-26); ABG PCO2 41.9 MM HG (35-48); ABG PH 7.396 (7.35-7.45); ABG TCO2 22.8 MMOL/L (23-27)
[2021-08-30] MEDS: ALBUTEROL/IPRATROPIUM 3 ML NEB RESP TX SCH ×4 (00:49→19:41)
[2021-08-30] MEDS: SODIUM CHLORIDE 0.45% 1,000 ML IV SCH ×2 (02:02→21:48)
[2021-08-30] MEDS: PIPERACILLIN/TAZOBACTAM 3,375 MG in SODIUM CHLORIDE 0.9% 100 ML IV SCH ×3 (05:05→18:31)
[2021-08-30 06:35] LABS: Basophils % 0.2 % (0.0-0.8); Hematocrit 34.7 VOL% (42.0-52.0); Hemoglobin 10.5 GM/DL (14.0-18.0); Immature Granulocytes % 0.7 %; Immature Granulocytes Absolute 0.14 #; Lymphocytes % 4.8 % (21.2-54.2); Mean Corpuscular HGB Conc 30.3 GM/DL (32-36); Mean Platelet Volume 11.4 FL (9.6-12.0); Monocytes % 3.2 % (1.7-12.7); NRBC # 0.04 10*3/uL; Neutrophils % 91.1 % (38.7-73.9); Platelet Count 176 T/CUMM (130-400); Red Cell Distribution Width 16.4 % (9.3-17.3); White Blood Count 20.2 T/CUMM (4-12)
[2021-08-30 06:45] LABS: Albumin 1.6 G/DL (3.4-5.0); Bilirubin,Total 0.4 MG/DL (0.20-1.00); Calcium 9.5 MG/DL (8.5-10.1); Osmolality,Calculated 298.3 MOS/KG (273-304); Potassium 3.8 MMOL/L (3.5-5.1); Total Protein 7.9 G/DL (6.4-8.2)
[2021-08-30 07:09] LABS: Anisocytosis 1+; Band Neutrophils 21 % (0-10); Lymphocytes 6 % (20-55); Platelet Estimate Normal; Segmented Neutrophils 69 % (50-85); Target Cells Few; Total Cells Counted 100
[2021-08-30 07:10] LABS: Hypochromia Slight
[2021-08-30] MEDS: LEVOFLOXACIN INJ 750 MG/150 ML PREMIX IV SCH (07:31)
[2021-08-30] MEDS: ENOXAPARIN 40 MG/0.4 ML SYRINGE SUBCUT SCH (09:58)
[2021-08-30] MEDS: INSULIN REGULAR 100 UNIT/ML SUBCUT SCH ×4 (09:58→21:22)
[2021-08-30 11:16] LABS: ABG Base Excess 2.3 MMOL/L (-2.5-2.5); ABG HCO3 26.4 MMOL/L (20-26); ABG Oxygen Saturation 97.1 % (95-100); ABG TCO2 23.8 MMOL/L (23-27)
[2021-08-30] MEDS: METOPROLOL TARTRATE 25 MG TABLET PEG SCH (21:26)
[2021-08-30] MEDS: KETOCONAZOLE 2% CREAM 30 GM TUBE TOP SCH (21:28)
[2021-08-30] MEDS: BUDESONIDE/FORMOTEROL 80-4.5 INHALER 6.9 GM INH SCH (21:28)
[2021-08-31] MEDS: SODIUM CHLORIDE 0.45% 1,000 ML IV SCH (01:32)
[2021-08-31] MEDS: ALBUTEROL/IPRATROPIUM 3 ML NEB RESP TX SCH ×4 (01:50→20:36)
[2021-08-31] MEDS: PIPERACILLIN/TAZOBACTAM 3,375 MG in SODIUM CHLORIDE 0.9% 100 ML IV SCH ×3 (03:34→18:34)
[2021-08-31] MEDS: LEVOFLOXACIN INJ 750 MG/150 ML PREMIX IV SCH (06:38)
[2021-08-31 07:15] LABS: Basophils % 0.1 % (0.0-0.8); Eosinophils % 0.1 % (0.00-10.9); Hematocrit 32.5 VOL% (42.0-52.0); Hemoglobin 10.1 GM/DL (14.0-18.0); Immature Granulocytes % 1.5 %; Immature Granulocytes Absolute 0.25 #; Lymphocytes # 1.5 10*3/uL (1.4-4.0); Lymphocytes % 9.3 % (21.2-54.2); Mean Corpuscular HGB Conc 31.1 GM/DL (32-36); Mean Corpuscular Volume 87.8 FL (87-102); Mean Platelet Volume 11.7 FL (9.6-12.0); Monocytes % 3.9 % (1.7-12.7); NRBC # 0.03 10*3/uL; Neutrophils % 85.1 % (38.7-73.9); Platelet Count 173 T/CUMM (130-400); Red Cell Distribution Width 16.3 % (9.3-17.3); White Blood Count 16.5 T/CUMM (4-12)
[2021-08-31 07:40] LABS: Calcium 8.8 MG/DL (8.5-10.1); Osmolality,Calculated 299.1 MOS/KG (273-304); Potassium 3.4 MMOL/L (3.5-5.1)
[2021-08-31] MEDS: INSULIN REGULAR 100 UNIT/ML SUBCUT SCH ×4 (08:18→22:09)
[2021-08-31] MEDS: NON-FORMULARY MEDICATION (Fluticasone-Umeclidin-Vilanter [Trelegy Ellipta] 100-62.5-25 mcg INH SCH (09:52)
[2021-08-31] MEDS: METOPROLOL TARTRATE 25 MG TABLET PEG SCH ×2 (09:55→22:09)
[2021-08-31] MEDS: ENOXAPARIN 40 MG/0.4 ML SYRINGE SUBCUT SCH (09:55)
[2021-08-31] MEDS: POLYETHYLENE GLYCOL POWDER 17 GM PACK PEG SCH (09:55)
[2021-08-31] MEDS: allopurinoL 100 MG TABLET PEG SCH (09:55)
[2021-08-31] MEDS: KETOCONAZOLE 2% CREAM 30 GM TUBE TOP SCH ×2 (09:56→22:09)
[2021-08-31] MEDS: BUDESONIDE/FORMOTEROL 80-4.5 INHALER 6.9 GM INH SCH ×2 (09:56→22:09)
[2021-08-31] MEDS: SERTRALINE 50 MG TABLET PEG SCH (09:56)
[2021-08-31] MEDS: [UNRECOGNIZED DRUG - OTHER] PEG SCH (10:07)
[2021-09-01] MEDS: ALBUTEROL/IPRATROPIUM 3 ML NEB RESP TX SCH ×4 (01:42→19:47)
[2021-09-01] MEDS: SODIUM CHLORIDE 0.45% 1,000 ML IV SCH (01:56)
[2021-09-01] MEDS: PIPERACILLIN/TAZOBACTAM 3,375 MG in SODIUM CHLORIDE 0.9% 100 ML IV SCH ×3 (03:04→19:05)
[2021-09-01] MEDS: LEVOFLOXACIN INJ 750 MG/150 ML PREMIX IV SCH (06:27)
[2021-09-01 07:02] LABS: Basophils % 0.2 % (0.0-0.8); Eosinophils # 0.1 10*3/uL (0.0-0.87); Eosinophils % 0.6 % (0.00-10.9); Hematocrit 32.8 VOL% (42.0-52.0); Hemoglobin 10.4 GM/DL (14.0-18.0); Immature Granulocytes % 0.6 %; Immature Granulocytes Absolute 0.08 #; Lymphocytes # 1.5 10*3/uL (1.4-4.0); Lymphocytes % 11.6 % (21.2-54.2); Mean Corpuscular HGB Conc 31.7 GM/DL (32-36); Mean Corpuscular Volume 86.8 FL (87-102); Mean Platelet Volume 11.6 FL (9.6-12.0); Monocytes % 4.4 % (1.7-12.7); NRBC # 0.02 10*3/uL; Neutrophils % 82.6 % (38.7-73.9); Platelet Count 181 T/CUMM (130-400); Red Blood Count 3.78 MC/CUMM (3.8-5.5); Red Cell Distribution Width 16.1 % (9.3-17.3); White Blood Count 12.9 T/CUMM (4-12)
[2021-09-01 07:10] LABS: Osmolality,Calculated 294.4 MOS/KG (273-304); Potassium 3.5 MMOL/L (3.5-5.1)
[2021-09-01] MEDS: INSULIN REGULAR 100 UNIT/ML SUBCUT SCH ×4 (07:51→20:11)
[2021-09-01] MEDS: NON-FORMULARY MEDICATION (Fluticasone-Umeclidin-Vilanter [Trelegy Ellipta] 100-62.5-25 mcg INH SCH (09:55)
[2021-09-01] MEDS: ENOXAPARIN 40 MG/0.4 ML SYRINGE SUBCUT SCH (09:56)
[2021-09-01] MEDS: POLYETHYLENE GLYCOL POWDER 17 GM PACK PEG SCH (09:57)
[2021-09-01] MEDS: METOPROLOL TARTRATE 25 MG TABLET PEG SCH ×2 (09:57→20:48)
[2021-09-01] MEDS: allopurinoL 100 MG TABLET PEG SCH (09:57)
[2021-09-01] MEDS: SERTRALINE 50 MG TABLET PEG SCH (09:57)
[2021-09-01] MEDS: [UNRECOGNIZED DRUG - OTHER] PEG SCH (10:08)
[2021-09-01] MEDS: KETOCONAZOLE 2% CREAM 30 GM TUBE TOP SCH ×2 (10:08→20:49)
[2021-09-01] MEDS: BUDESONIDE/FORMOTEROL 80-4.5 INHALER 6.9 GM INH SCH ×2 (10:08→20:49)
[2021-09-01] MEDS: methylPREDNISolone SOD SUC 40 MG/1 ML VIAL IV SCH ×2 (16:48→20:49)
[2021-09-02] MEDS: ALBUTEROL/IPRATROPIUM 3 ML NEB RESP TX SCH ×4 (01:04→20:15)
[2021-09-02] MEDS: methylPREDNISolone SOD SUC 40 MG/1 ML VIAL IV SCH ×4 (03:41→23:41)
[2021-09-02] MEDS: PIPERACILLIN/TAZOBACTAM 3,375 MG in SODIUM CHLORIDE 0.9% 100 ML IV SCH ×3 (03:41→23:41)
[2021-09-02 06:27] LABS: Calcium 9.6 MG/DL (8.5-10.1); Osmolality,Calculated 289.8 MOS/KG (273-304); Potassium 4.4 MMOL/L (3.5-5.1)
[2021-09-02 07:14] LABS: Basophils % 0.1 % (0.0-0.8); Hematocrit 36.8 VOL% (42.0-52.0); Hemoglobin 11.5 GM/DL (14.0-18.0); Immature Granulocytes % 0.4 %; Immature Granulocytes Absolute 0.05 #; Lymphocytes # 0.6 10*3/uL (1.4-4.0); Lymphocytes % 4.8 % (21.2-54.2); Mean Corpuscular HGB Conc 31.3 GM/DL (32-36); Mean Corpuscular Volume 87.4 FL (87-102); Mean Platelet Volume 11.4 FL (9.6-12.0); Monocytes % 0.8 % (1.7-12.7); Neutrophils % 93.9 % (38.7-73.9); Platelet Count 177 T/CUMM (130-400); Red Blood Count 4.21 MC/CUMM (3.8-5.5); Red Cell Distribution Width 16.4 % (9.3-17.3)
[2021-09-02 07:40] LABS: Band Neutrophils 1 % (0-10); Hypochromia Slight; Lymphocytes 4 % (20-55); Microcytosis Slight; Platelet Estimate Adequate; Segmented Neutrophils 93 % (50-85); Total Cells Counted 100
[2021-09-02] MEDS: ENOXAPARIN 40 MG/0.4 ML SYRINGE SUBCUT SCH (10:42)
[2021-09-02] MEDS: METOPROLOL TARTRATE 25 MG TABLET PEG SCH ×2 (10:42→22:25)
[2021-09-02] MEDS: SERTRALINE 50 MG TABLET PEG SCH ×2 (10:42→10:56)
[2021-09-02] MEDS: allopurinoL 100 MG TABLET PEG SCH (10:42)
[2021-09-02] MEDS: BUDESONIDE/FORMOTEROL 80-4.5 INHALER 6.9 GM INH SCH ×2 (10:48→22:25)
[2021-09-02] MEDS: INSULIN REGULAR 100 UNIT/ML SUBCUT SCH ×4 (10:54→21:49)
[2021-09-02] MEDS: POLYETHYLENE GLYCOL POWDER 17 GM PACK PEG SCH (10:55)
[2021-09-02] MEDS: KETOCONAZOLE 2% CREAM 30 GM TUBE TOP SCH ×2 (10:55→22:25)
[2021-09-02] MEDS: NON-FORMULARY MEDICATION (Fluticasone-Umeclidin-Vilanter [Trelegy Ellipta] 100-62.5-25 mcg INH SCH (10:55)
[2021-09-02] MEDS: [UNRECOGNIZED DRUG - OTHER] PEG SCH (10:55)
[2021-09-02] MEDS: LEVOFLOXACIN INJ 750 MG/150 ML PREMIX IV SCH (11:45)
[2021-09-03] MEDS: ALBUTEROL/IPRATROPIUM 3 ML NEB RESP TX SCH ×4 (01:00→19:21)
[2021-09-03] MEDS: methylPREDNISolone SOD SUC 40 MG/1 ML VIAL IV SCH ×3 (05:35→18:06)
[2021-09-03] MEDS: allopurinoL 100 MG TABLET PEG SCH (09:37)
[2021-09-03] MEDS: METOPROLOL TARTRATE 25 MG TABLET PEG SCH ×2 (09:37→20:00)
[2021-09-03] MEDS: POLYETHYLENE GLYCOL POWDER 17 GM PACK PEG SCH (09:38)
[2021-09-03] MEDS: ENOXAPARIN 40 MG/0.4 ML SYRINGE SUBCUT SCH (09:38)
[2021-09-03] MEDS: INSULIN REGULAR 100 UNIT/ML SUBCUT SCH ×4 (09:55→20:15)
[2021-09-03] MEDS: LEVOFLOXACIN INJ 750 MG/150 ML PREMIX IV SCH (09:55)
[2021-09-03] MEDS: [UNRECOGNIZED DRUG - OTHER] PEG SCH (09:56)
[2021-09-03] MEDS: KETOCONAZOLE 2% CREAM 30 GM TUBE TOP SCH ×2 (09:56→20:01)
[2021-09-03] MEDS: BUDESONIDE/FORMOTEROL 80-4.5 INHALER 6.9 GM INH SCH ×2 (09:56→20:01)
[2021-09-03] MEDS: NON-FORMULARY MEDICATION (Fluticasone-Umeclidin-Vilanter [Trelegy Ellipta] 100-62.5-25 mcg INH SCH (09:56)
[2021-09-03] MEDS: SERTRALINE 50 MG TABLET PEG SCH (09:56)
[2021-09-03] MEDS: PIPERACILLIN/TAZOBACTAM 3,375 MG in SODIUM CHLORIDE 0.9% 100 ML IV SCH ×2 (11:07→17:43)
[2021-09-04] MEDS: PIPERACILLIN/TAZOBACTAM 3,375 MG in SODIUM CHLORIDE 0.9% 100 ML IV SCH ×3 (00:14→17:48)
[2021-09-04] MEDS: methylPREDNISolone SOD SUC 40 MG/1 ML VIAL IV SCH ×4 (00:14→17:49)
[2021-09-04] MEDS: ALBUTEROL/IPRATROPIUM 3 ML NEB RESP TX SCH ×4 (00:45→20:25)
[2021-09-04 08:17] LABS: Basophils % 0.1 % (0.0-0.8); Hematocrit 35.5 VOL% (42.0-52.0); Immature Granulocytes % 1.3 %; Immature Granulocytes Absolute 0.17 #; Lymphocytes # 0.8 10*3/uL (1.4-4.0); Mean Corpuscular Volume 87.2 FL (87-102); Mean Platelet Volume 10.9 FL (9.6-12.0); Monocytes % 2.7 % (1.7-12.7); Neutrophils % 89.9 % (38.7-73.9); Platelet Count 196 T/CUMM (130-400); Red Blood Count 4.07 MC/CUMM (3.8-5.5); Red Cell Distribution Width 16.7 % (9.3-17.3); White Blood Count 13.4 T/CUMM (4-12)
[2021-09-04 08:36] LABS: Calcium 9.4 MG/DL (8.5-10.1); Osmolality,Calculated 293.8 MOS/KG (273-304); Potassium 3.9 MMOL/L (3.5-5.1)
[2021-09-04] MEDS: SERTRALINE 50 MG TABLET PEG SCH (09:17)
[2021-09-04] MEDS: BUDESONIDE/FORMOTEROL 80-4.5 INHALER 6.9 GM INH SCH ×2 (09:17→20:17)
[2021-09-04] MEDS: METOPROLOL TARTRATE 25 MG TABLET PEG SCH ×2 (09:17→20:16)
[2021-09-04] MEDS: allopurinoL 100 MG TABLET PEG SCH (09:17)
[2021-09-04] MEDS: KETOCONAZOLE 2% CREAM 30 GM TUBE TOP SCH ×2 (09:18→20:17)
[2021-09-04] MEDS: ENOXAPARIN 40 MG/0.4 ML SYRINGE SUBCUT SCH (09:18)
[2021-09-04] MEDS: LEVOFLOXACIN INJ 750 MG/150 ML PREMIX IV SCH (09:18)
[2021-09-04] MEDS: INSULIN REGULAR 100 UNIT/ML SUBCUT SCH ×4 (09:28→20:16)
[2021-09-04] MEDS: POLYETHYLENE GLYCOL POWDER 17 GM PACK PEG SCH (09:28)
[2021-09-04] MEDS: NON-FORMULARY MEDICATION (Fluticasone-Umeclidin-Vilanter [Trelegy Ellipta] 100-62.5-25 mcg INH SCH (09:28)
[2021-09-04] MEDS: [UNRECOGNIZED DRUG - OTHER] PEG SCH (09:29)
[2021-09-04] MEDS ORDERED: KETOROLAC 15 MG/1 ML VIAL IV PRN (19:48)
[2021-09-05] MEDS: PIPERACILLIN/TAZOBACTAM 3,375 MG in SODIUM CHLORIDE 0.9% 100 ML IV SCH ×3 (00:38→15:55)
[2021-09-05] MEDS: methylPREDNISolone SOD SUC 40 MG/1 ML VIAL IV SCH ×3 (00:38→11:45)
[2021-09-05] MEDS: ALBUTEROL/IPRATROPIUM 3 ML NEB RESP TX SCH ×3 (01:00→13:05)
[2021-09-05 05:38] LABS: Basophils % 0.1 % (0.0-0.8); Hematocrit 35.7 VOL% (42.0-52.0); Hemoglobin 11.3 GM/DL (14.0-18.0); Immature Granulocytes % 0.8 %; Immature Granulocytes Absolute 0.13 #; Lymphocytes # 0.5 10*3/uL (1.4-4.0); Lymphocytes % 2.9 % (21.2-54.2); Mean Corpuscular HGB Conc 31.7 GM/DL (32-36); Mean Corpuscular Volume 87.3 FL (87-102); Mean Platelet Volume 11.7 FL (9.6-12.0); Monocytes % 5.6 % (1.7-12.7); Neutrophils % 90.6 % (38.7-73.9); Platelet Count 228 T/CUMM (130-400); Red Blood Count 4.09 MC/CUMM (3.8-5.5); Red Cell Distribution Width 16.8 % (9.3-17.3); White Blood Count 16.9 T/CUMM (4-12)
[2021-09-05 05:55] LABS: Calcium 9.2 MG/DL (8.5-10.1); Osmolality,Calculated 293.8 MOS/KG (273-304); Potassium 3.8 MMOL/L (3.5-5.1)
[2021-09-05 06:22] LABS: Hypochromia Slight; Lymphocytes 3 % (20-55); Microcytosis Slight; Nucleated Red Blood Cells 2 (0-5); Platelet Estimate Adequate; Segmented Neutrophils 93 % (50-85); Total Cells Counted 100
[2021-09-05] MEDS: LEVOFLOXACIN INJ 750 MG/150 ML PREMIX IV SCH (08:30)
[2021-09-05] MEDS: allopurinoL 100 MG TABLET PEG SCH (08:30)
[2021-09-05] MEDS: SERTRALINE 50 MG TABLET PEG SCH (08:30)
[2021-09-05] MEDS: INSULIN REGULAR 100 UNIT/ML SUBCUT SCH ×3 (08:30→15:55)
[2021-09-05] MEDS: METOPROLOL TARTRATE 25 MG TABLET PEG SCH (08:30)
[2021-09-05] MEDS: ENOXAPARIN 40 MG/0.4 ML SYRINGE SUBCUT SCH (08:30)
[2021-09-05] MEDS: BUDESONIDE/FORMOTEROL 80-4.5 INHALER 6.9 GM INH SCH (08:31)
[2021-09-05] MEDS: POLYETHYLENE GLYCOL POWDER 17 GM PACK PEG SCH (08:31)
[2021-09-05] MEDS: [UNRECOGNIZED DRUG - OTHER] PEG SCH (10:42)
[2021-09-05] MEDS: NON-FORMULARY MEDICATION (Fluticasone-Umeclidin-Vilanter [Trelegy Ellipta] 100-62.5-25 mcg INH SCH (10:42)
[2021-09-05] MEDS: KETOCONAZOLE 2% CREAM 30 GM TUBE TOP SCH (10:42)
[2021-09-05 12:32] VITALS: BP 137/68
== END 2021-09-05 18:34 | DRG 871 ==
LOC: EDUNIT# → EDBD → N.ED 03:02 → N.EDINP 05:44 → SUATTDRO 05:44 → N.3E 15:40
PROVIDERS: ADMIT Internal Medicine; ATTEND Internal Medicine